=== PATIENT | male | born 1975 | race Caucasian/White ===

== ENCOUNTER → 2018-02-16 15:35 | Outpatient (CLI) | payer OTHER, SELFPAY ==
--- NOTE | 2018-02-16 15:36 | DI.RAD.S_ITS ---
PROCEDURE: XR ELBOW RT MIN 3V INDICATIONS: injury TECHNIQUE: 3 views of the elbow were acquired. COMPARISON: None. FINDINGS: Bones: No fractures or dislocations. No suspicious bony lesions. Soft tissues: No elbow joint effusion. No suspicious soft tissue calcifications. IMPRESSION: Normal for age, source of current symptoms is not seen. Dictated by: Mike Hitchcock M.D. on 02/16/2018 at 16:01 Approved by: Mike Hitchcock M.D. on 02/16/2018 at 16:14
== END ==
PROVIDERS: Family Provider Family Medicine; PCP Family Medicine; Visit Provider Family Medicine
DX: S59.902A Unspecified injury of left elbow, initial encounter (principal)
CPT/HCPCS: 73080

== ENCOUNTER → 2018-03-02 06:57 | Outpatient (CLI) | payer OTHER, SELFPAY ==
--- NOTE | 2018-03-02 06:59 | DI.MRI.S_ITS ---
PROCEDURE: MR ELBOW RT WO CON INDICATIONS: injury TECHNIQUE: Noncontrast coronal proton density fast spin echo and T2 fast spin echo with fat saturation, axial and sagittal T1 spin echo and T2 fast spin echo with fat saturation through the elbow. COMPARISON: None. FINDINGS: Image quality: Excellent. Lateral structures: The lateral ulnar collateral ligament and radial collateral ligament both appear intact. The overlying common extensor tendon appears markedly thickened with intrasubstance signal change in keeping with partial rupture and tendinopathy. There is adjacent soft tissue edema and fluid. Medial structures: The ulnar collateral ligament appears intact. The overlying common flexor tendon appears normal. The ulnar nerve appears normal in size and signal within the cubital tunnel. Anterior structures: The biceps and brachialis tendons both appear intact as they insert onto the proximal radius and ulna, respectively. No bicipitoradial bursal fluid. The median and radial neurovascular bundles appear normal; no focal muscle atrophy to suggest nerve impingement. Posterior structures: The conjoint triceps tendon from the long and lateral heads appears intact. The medial head of the triceps tendon also appears normal, with direct muscle insertion onto the olecranon. No olecranon bursal fluid. Bone and cartilage: No bone marrow contusions or fractures. No osteochondral injuries. IMPRESSION: Severe tendinopathy and partial tear involving the common extensor origin, in keeping with lateral epicondylitis syndrome. Recommend clinical correlation. Dictated by: Jb Iglesias M.D. on 03/02/2018 at 8:29 Approved by: Jb Iglesias M.D. on 03/02/2018 at 8:57
== END ==
PROVIDERS: Family Provider Family Medicine; PCP Family Medicine; Visit Provider Family Medicine
DX: S53.402A Unspecified sprain of left elbow, initial encounter (principal)
CPT/HCPCS: 73221

== ENCOUNTER → 2018-12-06 06:54 | Outpatient (CLI) | payer OTHER, SELFPAY ==
[2018-12-06 07:58] LABS: Add Manual Diff / Slide Review NO; Basophils Absolute Auto 100 /uL (0-100); Basophils Percent Auto 1.2 % (0-2); Eosinophils Absolute Auto 100 /uL (0-450); Hematocrit 46.6 % (41-53); Hemoglobin 15.6 g/dL (13.5-17.5); Lymphocytes Absolute Auto 2300 /uL (1100-4500); Lymphocytes Percent Auto 25.1 % (25-40); Mean Corpuscular HGB Conc 33.5 % (30-36); Mean Corpuscular Hemoglobin 28.7 PG (26-34); Mean Corpuscular Volume 85.5 fL (80-100); Monocytes Absolute Auto 800 /uL (0-900); Monocytes Percent Auto 8.5 % (3-14); Neutrophils Absolute Auto 5800 /uL (1500-7000); Neutrophils Percent Auto 64.2 % (50-75); Platelet Count 260 X10^3/uL (150-400); Red Blood Cell Count 5.45 X10^6/uL (4.5-5.9); Red Cell Distribution Width 13.5 % (11.6-14.8)
[2018-12-06 08:20] LABS: Alanine Aminotransferase 46 IU/L (21-72); Albumin 4.6 g/dL (3.5-5.0); Albumin Globulin Ratio 1.6 (1.0-2.8); Alkaline Phosphatase 70 U/L (38-126); Aspartate Aminotransferase 31 IU/L (17-59); Bilirubin Total 0.5 mg/dL (0.2-1.3); Blood Urea Nitrogen 18 mg/dL (9-20); Calcium 9.4 mg/dL (8.4-10.2); Carbon Dioxide 27 mmol/L (22-32); Chloride 102 mmol/L (98-107); Cholesterol 183 mg/dL (140-199); Estimated Glomerular Filt Rate > 60.0 mL/min (>60); Globulin 2.9 g/dL (1.7-4.1); Glucose 104 mg/dL (70-100); HDL Cholesterol 39 mg/dL (40-60); HEMOLYSIS < 15 (0-50); LDL Cholesterol Calculated 110 mg/dL (<100); Potassium 4.4 mmol/L (3.4-5.1); Sodium 139 mmol/L (137-145); Total Protein 7.5 g/dL (6.3-8.2); Triglycerides 171 mg/dL (35-150)
[2018-12-06 08:51] LABS: Prostate Specific Antigen Scrn 0.423 ng/mL (0.1-4.0)
== END ==
PROVIDERS: Family Provider Family Medicine; PCP Family Medicine; Visit Provider Family Medicine
DX: F32.9 Major depressive disorder, single episode, unspecified (principal)
CPT/HCPCS: 36415; 80053; 80061; 84403; 85025; G0103

== ENCOUNTER → 2019-03-22 07:07 | Outpatient (CLI) | payer OTHER, SELFPAY | PROVIDERS: Family Provider Family Medicine; PCP Family Medicine; Visit Provider Family Medicine | DX: E29.1 Testicular hypofunction (principal) | CPT/HCPCS: 36415; 84403 ==

== ENCOUNTER → 2019-06-21 10:10 | Outpatient (CLI) | payer OTHER, SELFPAY ==
[2019-06-24 13:57] LABS: Testosterone Free 68.2 pg/mL (35.0-155.0); Testosterone Total 299 ng/dL (250-1100)
== END ==
PROVIDERS: Family Provider Family Medicine; PCP Family Medicine; Visit Provider Nurse Practitioner
DX: R79.89 Other specified abnormal findings of blood chemistry (principal); Z51.81 Encounter for therapeutic drug level monitoring; Z79.890 Hormone replacement therapy
CPT/HCPCS: 36415; 84402; 84403

== ENCOUNTER → 2019-09-16 09:04 | Outpatient (CLI) | payer OTHER, SELFPAY | PROVIDERS: PCP Family Medicine; Visit Provider Family Medicine | DX: E34.9 Endocrine disorder, unspecified (principal) | CPT/HCPCS: 36415; 84403 ==

== ENCOUNTER → 2019-11-16 07:13 | Outpatient (CLI) | payer OTHER, SELFPAY ==
[2019-11-16 09:19] LABS: Testosterone 292 ng/dL (132-813)
== END ==
PROVIDERS: PCP Family Medicine; Referring Provider Family Medicine; Visit Provider Family Medicine
DX: E34.9 Endocrine disorder, unspecified (principal)
CPT/HCPCS: 36415; 84403

== ENCOUNTER → 2020-05-16 10:35 | Outpatient (CLI) | payer OTHER, SELFPAY ==
[2020-05-16 12:26] LABS: Add Manual Diff / Slide Review NO; Basophils Absolute Auto 100 /uL (0-100); Basophils Percent Auto 1.1 % (0-2); Eosinophils Absolute Auto 100 /uL (0-450); Eosinophils Percent Auto 0.8 % (2-4); Hematocrit 48.2 % (41-53); Hemoglobin 16.3 g/dL (13.5-17.5); Lymphocytes Absolute Auto 2100 /uL (1100-4500); Lymphocytes Percent Auto 21.7 % (25-40); Mean Corpuscular HGB Conc 33.8 % (30-36); Mean Corpuscular Hemoglobin 29.4 PG (26-34); Monocytes Absolute Auto 1000 /uL (0-900); Monocytes Percent Auto 10.8 % (3-14); Neutrophils Absolute Auto 6200 /uL (1500-7000); Neutrophils Percent Auto 65.6 % (50-75); Platelet Count 233 X10^3/uL (150-400); Red Blood Cell Count 5.54 X10^6/uL (4.5-5.9); Red Cell Distribution Width 14.3 % (11.6-14.8); White Blood Cell Count 9.5 X10^3/uL (4.5-11.0)
[2020-05-16 12:42] LABS: Alanine Aminotransferase 32 IU/L (<50); Albumin 4.4 g/dL (3.5-5.0); Albumin Globulin Ratio 1.6 (1.0-2.8); Alkaline Phosphatase 51 U/L (38-126); Aspartate Aminotransferase 32 IU/L (17-59); BUN Creatinine Ratio 12.5 (6-22); Bilirubin Total 0.9 mg/dL (0.2-1.3); Blood Urea Nitrogen 12 mg/dL (9-20); Calcium 9.3 mg/dL (8.4-10.2); Carbon Dioxide 28 mmol/L (22-32); Chloride 100 mmol/L (98-107); Cholesterol 160 mg/dL (140-199); Estimated Glomerular Filt Rate > 60.0 mL/min (>60); Globulin 2.8 g/dL (1.7-4.1); Glucose 81 mg/dL (70-100); HDL Cholesterol 39 mg/dL (40-60); HEMOLYSIS 49 (0-50); LDL Cholesterol Calculated 87 mg/dL (<100); Potassium 3.9 mmol/L (3.4-5.1); Sodium 137 mmol/L (137-145); Total Protein 7.2 g/dL (6.3-8.2); Triglycerides 170 mg/dL (35-150)
[2020-05-16 13:12] LABS: Prostate Specific Antigen Scrn 0.922 ng/mL (0.1-4.0)
[2020-05-16 13:15] LABS: Testosterone 395 ng/dL (132-813)
== END ==
PROVIDERS: PCP Family Medicine; Referring Provider Family Medicine; Visit Provider Family Medicine
DX: E78.2 Mixed hyperlipidemia (principal); I10 Essential (primary) hypertension; Z12.5 Encounter for screening for malignant neoplasm of prostate
CPT/HCPCS: 36415; 80053; 80061; 84403; 85025; G0103

== ENCOUNTER → 2020-05-25 19:07 | Outpatient (CLI) | payer OTHER, SELFPAY ==
--- NOTE | 2020-05-25 19:09 | DI.MRI.S_ITS ---
PROCEDURE: MR CERVICAL SPINE WO CON INDICATIONS: Neck pain TECHNIQUE: Noncontrast sagittal T1 spin echo and T2 fast spin echo, sagittal STIR, foraminal oblique sagittal T2 fast spin echo, and axial gradient echo or T2 fast spin echo through the cervical spine. COMPARISON: [facility], MR, C-SPINE WITHOUT CONTRAST, 10/11/2015, 9:23. [facility], MR, C-SPINE W&WO CONTRAST, 06/16/2016, 7:48. [facility], CR, SPINE CERVICAL 2 OR 3VW, 05/14/2016, 15:01. [facility], CR, SPINE CERVICAL 2 OR 3VW, 03/13/2016, 9:08. [facility], CR, SPINE CERVICAL 2 OR 3VW, 01/17/2016, 9:01. [facility], MR, C-SPINE WITHOUT CONTRAST, 11/05/2016, 16:55. FINDINGS: Image quality: Excellent. Alignment and Curvature: There is straightening of the normal cervical lordosis. Bone Marrow: Marrow demonstrates normal overall signal. Spinal Cord: Visualized spinal cord has normal size and signal. No cerebellar tonsillar herniation. Paraspinous Soft Tissues: No paravertebral masses. Prevertebral soft tissues are normal in thickness. C2-C3: No significant abnormality is seen. C3-C4: The disc height is well-preserved. Loss of disc signal is seen at this level. Moderate generalized disc osteophyte complex is seen. Mild to moderate facet hypertrophy is seen. There is moderate left-sided and mild right-sided neural foraminal narrowing seen. Mild central canal narrowing is seen. These imaging findings have progressed compared to the prior study. C4-C5: The disc height is well-preserved. Loss of disc signal is seen at this level. Moderate disc osteophyte complex is seen, which is eccentric to the right. There is at least moderate right-sided and moderate right-sided neural foraminal narrowing seen. There is moderate to severe left-sided and minimal left-sided neural foraminal narrowing seen. Moderate central canal narrowing is seen. There is associated mass effect upon the ventral spinal cord. These degenerative changes are more prominent than in 2017. C5-C6: Moderate loss of disc height is seen. Loss of disc signal is seen. Moderate disc osteophyte complex is seen, which is eccentric to the right. Mild facet joint hypertrophy is seen. There is moderate to severe right-sided and moderate left-sided neural foraminal narrowing seen. Mild central canal narrowing is seen. When comparison is made with the prior examination, these findings are similar. C6-C7: Postoperative changes are seen anteriorly, with fixation hardware. There is associated susceptibility artifact. Mild to moderate disc osteophyte complex is seen. Mild facet joint hypertrophy is seen. There is moderate bilateral neural foraminal narrowing seen, left worse than right. The central canal is widely patent. When comparison is made with the prior examination, these findings are similar. C7-T1: The disc height is well-preserved. Loss of disc signal is seen at this level. No significant disc bulge is seen. No significant neural foraminal or central canal narrowing can be seen. No significant change from the prior. IMPRESSION: Unremarkable anterior fixation hardware seen at C6-C7. Mild progression of degenerative change at C3-C4 and C5-C6 compared to 2017. Straightening of the normal cervical lordosis is seen, which is commonly observed in patients with muscular spasm. Dictated by: Jarocho Edge M.D. on 05/28/2020 at 8:27 Approved by: Jarocho Edge M.D. on 05/28/2020 at 8:35
== END ==
PROVIDERS: PCP Family Medicine; Referring Provider Family Medicine; Visit Provider Family Medicine
DX: M54.2 Cervicalgia (principal); M47.812 Spondylosis without myelopathy or radiculopathy, cervical region
CPT/HCPCS: 72141

== ENCOUNTER → 2020-09-07 07:53 | Outpatient (CLI) | payer OTHER, SELFPAY ==
[2020-09-07 08:35] LABS: Hemoglobin A1C% w Est Avg Glu 5.4 % (4.0-6.0)
[2020-09-07 09:01] LABS: BUN Creatinine Ratio 11.9 (6-22); Blood Urea Nitrogen 14 mg/dL (9-20); Calcium 9.1 mg/dL (8.4-10.2); Carbon Dioxide 33 mmol/L (22-32); Chloride 101 mmol/L (98-107); Estimated Glomerular Filt Rate > 60.0 mL/min (>60); Glucose 93 mg/dL (70-100); HEMOLYSIS < 15 (0-50); Potassium 4.1 mmol/L (3.4-5.1); Sodium 138 mmol/L (137-145)
[2020-09-07 09:32] LABS: Testosterone 1170 ng/dL (132-813)
== END ==
PROVIDERS: PCP Family Medicine; Referring Provider Family Medicine; Visit Provider Family Medicine
DX: I10 Essential (primary) hypertension (principal); R81 Glycosuria; E34.9 Endocrine disorder, unspecified
CPT/HCPCS: 36415; 80048; 83036; 84403

== ENCOUNTER → 2020-09-10 15:37 | Outpatient (CLI) | payer OTHER, SELFPAY ==
[2020-09-10 17:32] LABS: COVID19 -Nasal RAPID Negative (Negative)
== END ==
PROVIDERS: PCP Family Medicine; Visit Provider Physician Assistant
DX: Z11.59 Encounter for screening for other viral diseases (principal)
CPT/HCPCS: 87635

== ENCOUNTER 2020-09-11 08:18 | Outpatient (CLI) | payer OTHER, SELFPAY ==
[2020-09-11] VITALS (9 sets, daily range): BP systolic 120–157; BP diastolic 65–87; PULSE 57–64; RESP 12–20; TEMP 36.6; O2SAT 96–100
--- NOTE | 2020-09-11 08:20 | DI.RAD.S_ITS ---
PROCEDURE: PAIN C/T FACET INJ/BLK 1ST L INDICATIONS: SPINAL STENOSIS COMPARISON: X-ray cervical spine, 06/25/2020. FINDINGS: Fluoroscopic spot filming was performed to verify placement of spinal needles at the left C4-C5 and C5-C6 level(s), as labeled on the films. Appropriate location(s) of the needle tip(s) was confirmed by injection of iodinated contrast. IMPRESSION: Fluoroscopy for pain management. Dictated by: Maggie Saldivar M.D. on 09/11/2020 at 10:02 Approved by: Maggie Saldivar M.D. on 09/11/2020 at 10:02
[2020-09-11] MEDS: fentaNYL 100 MCG/2 ML INJ 50 MCG IV (09:14)
[2020-09-11] MEDS: MIDAZOLAM 5 MG/5 ML VIAL IV (09:19)
[2020-09-11] MEDS: DEXAMETHASONE 10 MG/ML VIAL 20 MG INJ (09:19)
[2020-09-11] MEDS: IOPAMIDOL 15 ML VIAL 3 ML INJ (09:19)
[2020-09-11] MEDS: BUPIVACAINE 0.5% (PF) VIAL 2 ML INJ (09:19)
--- NOTE | 2020-09-11 09:30 | P.PCN_ITS ---
Date/Time/Diagnoses Date of procedure: 09/11/20 Time of procedure: 09:30 Pre-procedure diagnosis: 1. FACET ARTHROPATHY 2. AXIAL NECK PAIN Post-procedure diagnosis: same Procedure Notes Procedure: 1. FLUOROSCOPICALLY GUIDED, CONTRAST-CONTROLLED LEFT C4/5, C5/6 FACET JOINT INJECTIONS WITH CONSCIOUS SEDATION. Indications: Kayode is referred by Dr. Conroy for treatment of Axial Neck Pain Physician: Michael Vega Total Fluoroscopy time (seconds): 10 Total sedation minutes: 14 Complications: none Procedure in detail & Post-procedure care: DESCRIPTION OF PROCEDURE Fluoroscopically guided, contrast-controlled left C4/5, C5/6 facet joint injections with conscious sedation. Following review of allergy and review of potential side effects and complications, including, but not necessarily limited to, infection, allergic reaction, local tissue breakdown, stroke, temporary or permanent nerve injury and paralysis, the patient indicated that the patient understood and agreed to proceed. An informed consent document was signed by the patient, witnessed by a nurse, and placed in the patient's chart. Additionally, other treatment options including medications, modalities, and physical therapy were reviewed with the patient. After review of previous anaesthesic history and IV conscious sedation the patient was deemed safe to proceed with today?s procedure with IV conscious sedation as ASA class II designation. Safety time-out was performed to confirm patient ID, procedure to be performed and site of procedure. IV sedation was accomplished with a combination of 4mg of Versed and 50mcg of Fentanyl was administered by the RN after DO order, titrated to patient comfort during the course of the procedure while the patient remained responsive to all verbal commands In the prone position, following sterile prep and drape of the cervical spine region, the posterior aspect of the right C4/5, C5/6 facet joints were identified fluoroscopically. The skin was anesthetized via a 25-gauge 1.5-inch needle with 1% lidocaine solution into the corresponding facet joints. At this point, a 25-gauge 2.5-inch spinal needle was atraumatically introduced and advanced under fluoroscopic guidance into the corresponding facet joints. Following negative aspiration, injections of approximately 0.2-cc of Isovue 200 confirmed interarticular placement without vascular uptake. At this point, a total of 1cc including 0.5 cc or 5mg of dexamethasone combined with 0.5cc of 1% lidocaine solution was injected without complication into each of the corresponding facet joints. The patient tolerated the procedure well without signs or symptoms of complications prior to transfer to the recovery area continued monitoring without incident. The patient was then transferred to the recovery area where they were observed for an appropriate period of time after the injection. The patient reported a VAS score of 7 prior to the procedure and a post- procedure VAS of 1. POST OP INSTRUCTIONS They were provided a Pain Log to continue to record their response to the target-specific procedure prior to their follow-up visit with their referring physician. Additionally, specific post-injection care instructions and a contact number to our office were provided if concerns arise regarding possible complications associated with the procedure are suspected.
== END 2020-09-11 09:52 | disposition home or self-care (01) ==
LOC: RAD 08:19
PROVIDERS: PCP Family Medicine; Referring Provider Family Medicine; Visit Provider Physical Medicine & Rehabilitation
DX: M47.812 Spondylosis without myelopathy or radiculopathy, cervical region (principal); M54.2 Cervicalgia
CPT/HCPCS: 64490; 64491; 99152; J1100; J2250; J3010

== ENCOUNTER → 2020-09-18 12:34 | Outpatient (CLI) | payer OTHER, SELFPAY ==
[2020-09-18 14:12] LABS: Testosterone 753 ng/dL (132-813)
== END ==
PROVIDERS: PCP Family Medicine; Referring Provider Family Medicine; Visit Provider Family Medicine
DX: R79.89 Other specified abnormal findings of blood chemistry (principal)
CPT/HCPCS: 36415; 84403

== ENCOUNTER → 2020-11-13 09:48 | Outpatient (CLI) | payer OTHER, SELFPAY ==
[2020-11-13 11:24] LABS: Testosterone 431 ng/dL (132-813)
== END ==
PROVIDERS: PCP Family Medicine; Referring Provider Family Medicine; Visit Provider Family Medicine
DX: E34.9 Endocrine disorder, unspecified (principal)
CPT/HCPCS: 36415; 84403

== ENCOUNTER → 2021-03-18 17:57 | Outpatient (CLI) | payer OTHER, SELFPAY ==
[2021-03-18 19:07] LABS: COVID19 -Nasal RAPID POSITIVE (Negative)
== END ==
PROVIDERS: PCP Family Medicine; Visit Provider Physician Assistant
DX: U07.1 COVID-19 (principal)
CPT/HCPCS: 87070; 87635

== ENCOUNTER → 2021-08-06 07:26 | Outpatient (CLI) | payer OTHER, SELFPAY ==
--- NOTE | 2021-08-06 07:27 | DI.RAD.S_ITS ---
PROCEDURE: XR CERVICAL SPINE 4V OR 5V INDICATIONS: NECK PAIN TECHNIQUE: 5 views of the cervical spine acquired. COMPARISON: Reference is made to the MR cervical spine dated May 25, 2020. FINDINGS: Bones: No fractures or dislocations to the C7 level. Anterior fixation and discectomy at C6-7. Uncovertebral/facet arthrosis causing mild to moderate right neural foraminal narrowing at C3-6. Oblique images demonstrate no left bony foraminal stenosis. Soft tissues: No prevertebral soft tissue swelling. IMPRESSION: No acute osseous abnormality. Dictated by: Arnie Grace M.D. on 08/06/2021 at 8:45 Approved by: Arnie Grace M.D. on 08/06/2021 at 8:49
== END ==
PROVIDERS: PCP Family Medicine; Referring Provider Physical Medicine & Rehabilitation; Visit Provider Physical Medicine & Rehabilitation
DX: M50.20 Other cervical disc displacement, unspecified cervical region (principal); M47.812 Spondylosis without myelopathy or radiculopathy, cervical region
CPT/HCPCS: 72050

== ENCOUNTER → 2022-03-11 09:21 | Outpatient (CLI) | payer OTHER, SELFPAY ==
[2022-03-11 10:21] LABS: Add Manual Diff / Slide Review NO; Basophils Absolute Auto 100 /uL (0-100); Basophils Percent Auto 1.7 % (0-2); Eosinophils Absolute Auto 200 /uL (0-450); Hemoglobin 16.2 g/dL (13.5-17.5); Lymphocytes Absolute Auto 1400 /uL (1100-4500); Lymphocytes Percent Auto 24.2 % (25-40); Mean Corpuscular HGB Conc 33.8 % (30-36); Mean Corpuscular Hemoglobin 29.1 PG (26-34); Monocytes Absolute Auto 500 /uL (0-900); Monocytes Percent Auto 8.5 % (3-14); Neutrophils Absolute Auto 3700 /uL (1500-7000); Neutrophils Percent Auto 62.6 % (50-75); Platelet Count 212 X10^3/uL (150-400); Red Blood Cell Count 5.59 X10^6/uL (4.5-5.9); Red Cell Distribution Width 13.6 % (11.6-14.8); White Blood Cell Count 5.9 X10^3/uL (4.5-11.0)
[2022-03-11 10:39] LABS: BUN Creatinine Ratio 13.7 (6-22); Blood Urea Nitrogen 13 mg/dL (9-20); Calcium 9.2 mg/dL (8.4-10.2); Carbon Dioxide 26 mmol/L (22-32); Chloride 106 mmol/L (98-107); Cholesterol 172 mg/dL (140-199); Estimated Glomerular Filt Rate > 60 mL/min (>60); Glucose 101 mg/dL (70-100); HDL Cholesterol 41 mg/dL (40-60); HEMOLYSIS < 15 (0-50); LDL Cholesterol Calculated 106 mg/dL (<100); Sodium 140 mmol/L (137-145); Triglycerides 127 mg/dL (35-150)
[2022-03-16 21:07] LABS: Percent Free Testosterone 2.92 % (1.50-4.20); Testosterone Free 3.12 ng/dL (5.00-21.00); Testosterone Total 106.8 ng/dL (264.0-916.0)
== END ==
PROVIDERS: PCP Family Medicine; Referring Provider Family Medicine; Visit Provider Family Medicine
DX: E34.9 Endocrine disorder, unspecified (principal); E78.2 Mixed hyperlipidemia; I10 Essential (primary) hypertension
CPT/HCPCS: 36415; 80048; 80061; 84402; 84403; 85025

== ENCOUNTER → 2022-07-12 09:27 | Outpatient (CLI) | payer OTHER, SELFPAY ==
[2022-07-24 10:01] LABS: Percent Free Testosterone 3.67 % (1.50-4.20); Testosterone Free 4.21 ng/dL (5.00-21.00); Testosterone Total 114.7 ng/dL (264.0-916.0)
== END ==
PROVIDERS: PCP Family Medicine; Referring Provider Family Medicine; Visit Provider Family Medicine
DX: E34.9 Endocrine disorder, unspecified (principal)
CPT/HCPCS: 36415; 84402; 84403

== ENCOUNTER → 2022-09-24 08:26 | Outpatient (CLI) | payer OTHER, SELFPAY ==
[2022-10-02 08:47] LABS: Percent Free Testosterone 3.25 % (1.50-4.20); Testosterone Free 9.39 ng/dL (5.00-21.00); Testosterone Total 288.8 ng/dL (264.0-916.0)
== END ==
PROVIDERS: PCP Family Medicine; Referring Provider Family Medicine; Visit Provider Family Medicine
DX: E34.9 Endocrine disorder, unspecified (principal)
CPT/HCPCS: 36415; 84402; 84403

== ENCOUNTER → 2023-07-17 08:28 | Outpatient (CLI) | payer OTHER, SELFPAY ==
--- NOTE | 2023-07-17 08:39 | DI.RAD.S_ITS ---
PROCEDURE: XR LUMBAR SPINE 2-3V INDICATIONS: Lumbago with sciatica, left side TECHNIQUE: 3 views of the lumbar spine were acquired. COMPARISON: None. FINDINGS: Bones: 5 [id number] vertebrae are present. Small vertebral body osteophytes. There is normal bony alignment. No vertebral body compression fractures. No suspicious bony lesions. Soft tissues: Overlying bowel gas pattern is normal. No suspicious soft tissue calcifications. IMPRESSION: Mild degenerative change. If clinically indicated consider further evaluation with MRI. Dictated by: Kj Foster M.D. on 07/17/2023 at 9:45 Approved by: Kj Foster M.D. on 07/17/2023 at 9:47
[2023-07-17 09:05] LABS: Add Manual Diff / Slide Review NO; Basophils Absolute Auto 100 /uL (0-100); Eosinophils Absolute Auto 100 /uL (0-450); Eosinophils Percent Auto 0.6 % (2-4); Hematocrit 43.7 % (41-53); Hemoglobin 14.8 g/dL (13.5-17.5); Lymphocytes Absolute Auto 1700 /uL (1100-4500); Lymphocytes Percent Auto 19.7 % (25-40); Mean Corpuscular HGB Conc 33.8 % (30-36); Mean Corpuscular Hemoglobin 29.1 PG (26-34); Mean Corpuscular Volume 86.1 fL (80-100); Monocytes Absolute Auto 500 /uL (0-900); Monocytes Percent Auto 6.3 % (3-14); Neutrophils Absolute Auto 6300 /uL (1500-7000); Neutrophils Percent Auto 72.4 % (50-75); Platelet Count 234 X10^3/uL (150-400); Red Blood Cell Count 5.08 X10^6/uL (4.5-5.9); Red Cell Distribution Width 13.5 % (11.6-14.8); White Blood Cell Count 8.7 X10^3/uL (4.5-11.0)
[2023-07-17 09:19] LABS: Alanine Aminotransferase 22 IU/L (<50); Albumin 4.4 g/dL (3.5-5.0); Albumin Globulin Ratio 1.4 (1.0-2.8); Alkaline Phosphatase 61 U/L (38-126); Aspartate Aminotransferase 23 IU/L (17-59); BUN Creatinine Ratio 13.1 (6-22); Bilirubin Total 0.6 mg/dL (0.2-1.3); Blood Urea Nitrogen 13 mg/dL (9-20); Calcium 9.3 mg/dL (8.4-10.2); Carbon Dioxide 27 mmol/L (22-32); Chloride 104 mmol/L (98-107); Cholesterol 168 mg/dL (140-199); Estimated Glomerular Filt Rate > 60 mL/min (>60); Globulin 3.2 g/dL (1.7-4.1); Glucose 96 mg/dL (70-100); HDL Cholesterol 40 mg/dL (40-60); HEMOLYSIS < 15 (0-50); LDL Cholesterol Calculated 92 mg/dL (<100); Potassium 4.1 mmol/L (3.4-5.1); Sodium 142 mmol/L (137-145); Total Protein 7.6 g/dL (6.3-8.2); Triglycerides 181 mg/dL (35-150)
== END ==
PROVIDERS: PCP Family Medicine; Referring Provider Family Medicine; Visit Provider Family Medicine
DX: E78.2 Mixed hyperlipidemia (principal); I10 Essential (primary) hypertension; M54.42 Lumbago with sciatica, left side
CPT/HCPCS: 36415; 72100; 80053; 80061; 85025

== ENCOUNTER → 2023-08-07 06:59 | Outpatient (CLI) | payer OTHER, SELFPAY ==
[2023-08-14 08:10] LABS: Percent Free Testosterone 4.45 % (1.50-4.20); Testosterone Free 19.61 ng/dL (5.00-21.00); Testosterone Total 440.7 ng/dL (264.0-916.0)
== END ==
PROVIDERS: PCP Family Medicine; Referring Provider Family Medicine; Visit Provider Family Medicine
DX: E34.9 Endocrine disorder, unspecified (principal)
CPT/HCPCS: 36415; 84402; 84403

== ENCOUNTER → 2023-10-16 17:10 | Outpatient (CLI) | payer OTHER, SELFPAY ==
--- NOTE | 2023-10-16 17:11 | DI.MRI.S_ITS ---
PROCEDURE: MR LUMBAR SPINE WO CON INDICATIONS: LUMBAR RADICULOPATHY L5 TECHNIQUE: Noncontrast sagittal T1 spin echo and T2 fast echo, sagittal STIR, and T2 fast spin echo through the lumbar spine. In cases with scoliosis, additional coronal T2 fast spin echo may be performed. COMPARISON: None. FINDINGS: Image quality: Excellent. Alignment and Curvature: There is minimal retrolisthesis seen at the L4-L5 and the L5-S1 levels. Bone Marrow: Marrow is of normal overall signal. No acute vertebral body compression fractures. Spinal Cord: Conus medullaris terminates at the L1 level. Visualized cord demonstrates normal signal and size. Paraspinous Soft Tissues: No paravertebral masses. Incidental note is made of a retroaortic left renal vein. T12-L1: Normal appearance. L1-L2: Normal appearance. L2-L3: The disc height and disk signal are well-preserved. Mild to moderate disc bulge is seen, with a central disc protrusion. There is mild right-sided and moderate left-sided neural foraminal narrowing. Mild central canal narrowing is seen. L3-L4: The disc height and disk signal are well-preserved. Mild generalized disc bulge is seen. Mild to moderate bilateral neural foraminal narrowing can be seen. Mild central canal narrowing is seen. L4-L5: The disc height is well-preserved. Loss of disc signal is seen at this level. Mild to moderate disc bulge is seen, which is eccentric to the right. There is a superimposed central disc protrusion. Mild facet joint hypertrophy is seen. Moderate bilateral neural foraminal narrowing is seen. Mild central canal narrowing is seen. L5-S1: Mild loss of disc height is seen. Loss of disc signal is seen. Moderate disc bulge is seen, which is eccentric to the left. There is a superimposed central disc protrusion. Mild facet joint hypertrophy is seen. There is moderate right-sided and at least moderate left-sided neural foraminal narrowing. There is a degree of compression seen upon the exiting left L5 nerve root. Mild central canal narrowing is seen. IMPRESSION: Multiple levels of lumbar spine degenerative change can be seen, which are worst at L5-S1, where there is a degree of compression seen upon the exiting left L5 nerve root. Dictated by: Jarocho Edge M.D. on 10/16/2023 at 18:01 Approved by: Jarocho Edge M.D. on 10/16/2023 at 18:04
== END ==
PROVIDERS: PCP Family Medicine; Referring Provider Physical Medicine & Rehabilitation; Visit Provider Physical Medicine & Rehabilitation
DX: M47.26 Other spondylosis with radiculopathy, lumbar region; M47.27 Other spondylosis with radiculopathy, lumbosacral region
CPT/HCPCS: 72148

== ENCOUNTER 2023-11-03 14:54 | Outpatient (CLI) | payer OTHER, SELFPAY ==
[2023-11-03] VITALS (10 sets, daily range): BP systolic 133–145; BP diastolic 82–93; PULSE 78–94; RESP 16–22; TEMP 36.1; O2SAT 95–99
--- NOTE | 2023-11-03 15:30 | DI.RAD.S_ITS ---
PROCEDURE: PAIN L/S TRANSFORAMINAL INJECT INDICATIONS: RADICULOPATHY COMPARISON: [facility], MR, MR LUMBAR SPINE WO CON, 10/16/2023, 17:45. FINDINGS: Fluoroscopic spot filming was performed to verify placement of a spinal needle at the L5-S1 level, as labeled on the films. Appropriate location of the needle tip was confirmed by injection of iodinated contrast. IMPRESSION: No significant intraprocedural abnormality. Dictated by: Jarocho Edge M.D. on 11/03/2023 at 16:21 Approved by: Jarocho Edge M.D. on 11/03/2023 at 16:22
[2023-11-03] MEDS: MIDAZOLAM 2 MG/2 ML VIAL IV (16:25)
[2023-11-03] MEDS: BETAMETHASONE 30 MG/5 ML MDV 6 MG INJ (16:28)
[2023-11-03] MEDS: iopamidoL 15 ML VIAL 3 ML INJ (16:28)
[2023-11-03] MEDS: DEXAMETHASONE 10 MG/ML VIAL INJ (16:29)
[2023-11-03] MEDS: BUPIVACAINE 0.25% (PF) VIAL 2 ML INJ (16:29)
--- NOTE | 2023-11-03 16:36 | PC.NURSE ---
Patient's 1625 vital signs were documented initially with the time of 1425. The time was corrected to 1625, but I was unable to delete the 1425 vital sign from the chart.
--- NOTE | 2023-11-03 16:42 | P.PCN_ITS ---
Date/Time/Diagnoses Date of procedure: 11/03/23 Time of procedure: 16:43 Pre-procedure diagnosis: 1. FORAMINAL STENOSIS WITH LE SYMPTOMS Post-procedure diagnosis: same Procedure Notes Procedure: 1. FLUOROSCOPICALLY GUIDED CONTRAST CONTROLLED TRANSFORAMINAL EPIDURAL STEROID INJECTION - Left L5/S1 Indications: Kayode is referred by Dr. Cherry for treatment of Foraminal Stenosis with Left LE Symptoms Physician: Michael Vega Total Fluoroscopy time (seconds): 15 Total sedation minutes: 12 Complications: none Procedure in detail & Post-procedure care: FINDINGS Foraminal Nerve Root Compression secondary to disc disease and facet hypertrophy DESCRIPTION OF PROCEDURE Following review of allergy and review of potential side effects and complications, including, but not necessarily limited to, infection, allergic reaction, local tissue breakdown, stroke, temporary or permanent nerve injury, paralysis, and possible , the patient indicated that the patient understood and agreed to proceed. An informed consent document was signed by the patient, witnessed by a nurse, and placed in the patient's chart. Additionally, other treatment options including medications, modalities, and physical therapy were reviewed with the patient. After review of previous anaesthesic history and IV conscious sedation the patient was deemed safe to proceed with today?s procedure with IV conscious sedation as ASA class II designation. Safety time-out was performed to confirm patient ID, procedure to be performed and site of procedure. IV sedation was accomplished with a combination of 2mg of Versed was administered by the RN after DO order, titrated to patient comfort during the course of the procedure while the patient remained responsive to all verbal commands In the prone position following sterile prep and drape of the lumbar region, the Left L5/S1 posterior neuroforamen was identified fluoroscopically. The skin was anesthetized via a 25-gauge 1.5-inch needle with 1% lidocaine solution. At this point, a 25-gauge 3.5-inch spinal needle was atraumatically introduced and advanced under fluoroscopic guidance through the posterior Left L5/S1 neuroforamen to approximately the anterior aspect of the canal. Depth was confirmed on lateral view. Following negative aspiration, injection of approximately 1.5 cc of Isovue 200 under live fluoroscopy in the AP view confirmed excellent flow along the nerve root, into the epidural space without vascular or intrathecal uptake observed Radiological data, including multiple fluoroscopic views of the lumbosacral spine, reveal a spinal needle at the Left L5/S1 posterior neuroforamen. Subsequent views show flow of contrast material flowing superiorly and inferiorly along the nerve root confirming epidural flow. Subsequently, a test dose of 1.5 cc of 1% lidocaine solution was administered and patient was observed for two minutes for signs or symptoms of complications, including abdominal pain, shortness of breath, bilateral upper or lower extremity weakness, nausea and vomiting, prior to steroid injection. At this point, a total of 2cc or 10mg of dexamethasone and 6mg of betamethasone was injected without incident. The procedure tolerated the procedure well without signs or symptoms of complications prior to transfer to the recovery area continued monitoring without incident. The patient was then transferred to the recovery area where they were observed for an appropriate time after the injection. The patient reported a VAS score of 8 prior to the procedure and a post-procedure VAS of 1. POST OP INSTRUCTIONS The patient was provided a Pain Log to continue to record their response to the target-specific procedure prior to follow-up visit with their referring physic rosa. Additionally, specific post-injection care instructions and a contact number to our office were provided if concerns arise regarding possible complications associated with the procedure are suspected.
== END 2023-11-03 17:00 | disposition home or self-care (01) ==
LOC: RAD 14:55
PROVIDERS: PCP Family Medicine; Referring Provider Physical Medicine & Rehabilitation; Visit Provider Physical Medicine & Rehabilitation
DX: M48.07 Spinal stenosis, lumbosacral region (principal); M51.17 Intervertebral disc disorders with radiculopathy, lumbosacral region; M47.27 Other spondylosis with radiculopathy, lumbosacral region
CPT/HCPCS: 64483; 99152; J0702; J1100; J2250; J3490

== ENCOUNTER 2023-11-04 19:36 | Emergency (ER) | payer OTHER, SELFPAY ==
[2023-11-04] VITALS (11 sets, daily range): BP systolic 101–146; BP diastolic 57–88; PULSE 79–147; RESP 16–32; TEMP 36.3–36.9; O2SAT 94–100; BMI 37.3
--- NOTE | 2023-11-04 19:47 | DI.RAD.S_ITS ---
PROCEDURE: XR CHEST 1V INDICATIONS: dyspnea, new a fib TECHNIQUE: One view of the chest was acquired. COMPARISON: [facility], , CHEST 2 VIEW, 03/28/2015, 11:53. FINDINGS: Surgical changes and devices: Partially evaluated lower cervical spine hardware. Lungs and pleura: Low lung volumes, but otherwise lungs are clear. No pleural effusions or pneumothorax. Mediastinum: Mediastinal contours appear normal. Heart size is normal. Bones and chest wall: No suspicious bony lesions. Overlying soft tissues appear unremarkable. IMPRESSION: Low lung volumes, but otherwise lungs are clear. Approved by: Lacey Gan M.D. on 11/04/2023 at 20:42
--- NOTE | 2023-11-04 19:49 | ED_ITS ---
HPI - SOB/Dyspnea General Chief Complaint: Arrhythmia/Palpitations Stated Complaint: dificulty breathing s/p injection Time Seen by Provider: 11/04/23 19:43 History of Present Illness HPI Narrative: 48-year-old male with history of hypertension, gout, chronic lumbar back pain presents by private vehicle from home for chest pain, shortness of breath since approximately 715 this evening. Yesterday the patient underwent lumbar spine injection for his chronic back pain. This afternoon he had a mild post- injection headache and was given a single dose of Valium, which resolved his headache completely. He went to go lie down when all of a sudden he felt chest pain, shortness of breath, and tingling in both of his arms. He called his , who took him to the emergency department. Patient noted to be in atrial fibrillation with rapid ventricular response on arrival. Denies history of heart problems, denies history of AFib. Related Data Previous Rx's Medication Instructions Recorded tizanidine 2 mg tablet 2 mg PO BID PRN muscle spasticity 06/03/21 #60 tabs celecoxib 200 mg capsule (Celebrex) 200 mg PO DAILY #30 caps 06/09/23 amlodipine 5 mg tablet 5 mg PO DAILY #90 tabs 06/10/23 bupropion HCl 150 mg tablet,12 hr 150 mg PO BID #180 tabs 06/10/23 sustained-release lovastatin 20 mg tablet 20 mg PO BEDTIME #90 tabs 06/10/23 methylprednisolone 4 mg tablets in See Rx Instructions PO PER PKG DIR 07/20/23 a dose pack (Medrol (Eddie)) radiculopathy #21 ea testosterone See Rx Instructions .Route 07/22/23 .COMPLEX #75 grams allopurinol 300 mg tablet See Rx Instructions .Route 08/06/23 .COMPLEX #90 tabs gabapentin 600 mg tablet 1,200 mg (2 x 600 mg) PO TID 08/06/23 neuropathic pain #540 tabs metoprolol tartrate 50 mg tablet See Rx Instructions .Route 08/06/23 .COMPLEX #180 tabs diazepam 10 mg tablet (Valium) 10 mg PO .COMPLEX PRN 1-2 prior to 10/27/23 MRI and for possible steroid flare #10 tabs apixaban 5 mg tablet (Eliquis) 5 mg PO BID #60 tabs 11/04/23 metoprolol tartrate 25 mg tablet 25 mg PO BID #60 tabs 11/04/23 Allergies Allergy/AdvReac Type Severity Reaction Status Date / Time No Known Drug Allergies Allergy Unknown Verified 11/04/23 19:49 [NO KNOWN DRUG ALLERGIES] Review of Systems Review of Systems Narrative: Negative except as noted above Patient History Medical History Facet arthropathy, lumbar Lumbar radiculopathy Acute low back pain with left-sided sciatica Chronic thoracic back pain Sacral region somatic dysfunction Pelvic somatic dysfunction Segmental and somatic dysfunction of abdomen and other regions Lumbar region somatic dysfunction Segmental and somatic dysfunction of rib cage Thoracic region somatic dysfunction Cervical somatic dysfunction Cranial somatic dysfunction Lower urinary tract symptoms (LUTS) Testosterone deficiency HNP (herniated nucleus pulposus), cervical Facet arthropathy, cervical Essential hypertension Low back pain BMI 40.0-44.9, adult Depression (11/03/16) Gout (04/19/15) Surgical History S/P cervical spinal fusion Family History Father No problems noted. Mother Brain aneurysm Multiple sclerosis Social History Smoking Status: Former smoker alcohol intake: never substance use type: does not use Smoking Status: Former smoker Exam Initial Vital Signs Initial Vital Signs: Vital Signs Temperature 97.4 F L 11/04/23 19:38 Pulse Rate 114 H 11/04/23 19:38 Respiratory Rate 18 11/04/23 19:38 Blood Pressure 146/88 H 11/04/23 19:38 Pulse Oximetry 98 11/04/23 19:38 Oxygen Delivery Method Room Air 11/04/23 19:38 Const: Awake, alert, anxious Cardiac: Tachycardia, irregularly irregular RESP: unlabored, clear bilaterally, no wheezing GI: Atraumatic, soft, nontender, nondistended, no rebound, no guarding MSK: Atraumatic, full range of motion, pulses equal Skin: Warm, Dry, intact, no rashes Neuro: AO x3, CN II-XII grossly intact, moves all extremities Psych: Anxious affect, mood normal, not suicidal, not homicidal Procedures Cardioversion Consent Signed: Yes Indication: Atrial fibrillation with RVR Stability: Stable Number of attempts (shocks): 1 Joules used: 120 Cardiac rhythm post-cardioversion: Normal sinus rhythm Procedural Sedation Consent signed: Yes Time out performed: Yes Indication: cardioversion ASA Class: II Mallampati Airway Classification: Class III Preparation: night monitor applied, pulse oximeter, capnometry used, supplemental O2 applied, suction/airway equipment at bedside and IV secured IV Propofol dose (mg): 100 Intraservice time/total sedation time (min): 10 ED Sedation Level: Moderate (Concious) Patient Tolerated Procedure: Well and No complications Complications: none Course Orders Ordered: ED Orders 11/04/23 19:47 Chest [XR chest 1V] Stat EKG-12 Lead Stat 11/04/23 19:48 CBC Auto Diff [Complete Blood Count AUTO DIFF] Stat CMP [Comprehensive Metabolic Panel] Stat D Dimer Stat PT [Prothrombin Time INR] Stat Pathologist Review (for CBC) Stat Troponin & CK Cardiac Panel Stat 11/04/23 20:20 Respiratory Panel (Film Array) Stat 11/04/23 20:25 Blood Culture Stat 11/04/23 20:38 CT angio chest PE protocol Stat 11/04/23 20:40 BNP [NT-proBNP (BNP-Adult 18+)] Stat Ethanol (ETOH) Stat Lactate (Lactic Acid) Stat TSH [Thyroid Stimulating Hormone] Stat 11/04/23 22:00 Urine Drug Screen, Rapid Stat Discontinued Medications Apixaban (Apixaban 5 Mg Tablet) 5 mg PO NOW ONE Stop: 11/04/23 23:35 Last Admin: 11/04/23 23:55 Dose: 5 mg Documented By: PHILL Sodium Chloride (Normal Saline 0.9%) 1,000 mls @ 1,000 mls/hr IV BOLUS ONE Stop: 11/04/23 20:46 Last Infusion: 11/04/23 21:00 Dose: Infused Documented By: Admin: 11/04/23 19:56 Dose: 1,000 mls/hr Documented By: EYAL Sodium Chloride (Normal Saline 0.9%) 1,000 mls @ 1,000 mls/hr IV BOLUS ONE Stop: 11/04/23 22:32 Last Admin: 11/04/23 22:45 Dose: 1,000 mls/hr Documented By: PHILL Metoprolol Tartrate (Metoprolol Tartrate 5 Mg/5 Ml Inj) 5 mg IV Q5M YANDY Stop: 11/04/23 20:11 Last Admin: 11/04/23 20:14 Dose: 5 mg Documented By: Admin: 11/04/23 20:07 Dose: 5 mg Documented By: Admin: 11/04/23 19:58 Dose: 5 mg Documented By: EYAL Metoprolol Tartrate (Metoprolol Ir 25 Mg Tablet) 25 mg PO NOW ONE Stop: 11/04/23 23:35 Last Admin: 11/04/23 23:54 Dose: 25 mg Documented By: PHILL Propofol (Propofol 200 Mg/20 Ml Vial) 200 mg IV NOW ONE Stop: 11/04/23 21:43 Last Admin: 11/04/23 23:05 Dose: 100 mg Documented By: PHILL Vital Signs Vital signs: Vital Signs - 8 hr 11/04/23 19:38 11/04/23 19:44 11/04/23 19:45 Temperature 97.4 F L Pulse Rate 114 H 121 H 101 H Respiratory Rate 18 Blood Pressure 146/88 H Pulse Oximetry 98 98 94 Oxygen Delivery Method Room Air Oxygen Flow Rate 11/04/23 19:45 11/04/23 20:00 11/04/23 20:30 Temperature Pulse Rate 147 H 120 H Respiratory Rate 32 H 23 Blood Pressure 146/88 H Pulse Oximetry 100 98 Oxygen Delivery Method Oxygen Flow Rate 11/04/23 22:50 11/04/23 23:05 11/04/23 23:13 Temperature 98.4 F 98.4 F Pulse Rate 117 H 83 Respiratory Rate 16 20 Blood Pressure 104/72 Pulse Oximetry Oxygen Delivery Method Room Air Oxygen Flow Rate 11/04/23 23:15 11/04/23 23:35 11/04/23 23:45 Temperature Pulse Rate 79 80 80 Respiratory Rate 17 18 17 Blood Pressure 101/57 L 110/67 111/64 Pulse Oximetry 95 97 95 Oxygen Delivery Method Oxygen Flow Rate 0 0 MDM - SOB/Dyspnea Differential Diagnosis Differential diagnosis: Likely acute exacerbation of chronic obstructive airways disease, congestive heart failure and community acquired pneumonia Lab Data 11/04/23 19:48 11/04/23 19:48 Labs: Lab Results 11/04/23 11/04/23 11/04/23 Range/Units 19:48 20:20 20:40 WBC 37.1 H* (4.5-11.0) X10^3/uL RBC 5.19 (4.5-5.9) X10^6/uL Hgb 15.0 (13.5-17.5) g/dL Hct 44.8 (41-53) % MCV 86.2 (80-100) fL MCH 28.8 (26-34) PG MCHC 33.4 (30-36) % RDW 13.3 (11.6-14.8) % Plt Count 260 (150-400) X10^3/uL Neut % (Auto) Not Reportable Lymph % (Auto) Not Reportable [place] % (Auto) Not Reportable Eos % (Auto) Not Reportable Baso % (Auto) Not Reportable Lymph # (Auto) Not Reportable [place] # (Auto) Not Reportable Baso # (Auto) Not Reportable Total Counted 100 Seg Neutrophils % 77.0 H (38-70) % Band Neutrophils % 5.0 (3-7) % Lymphocytes % (Manual) 5.0 L (25-45) % Atypical Lymphs % 1.0 H ( - 0) % Monocytes % (Manual) 12.0 H (2-11) % Neutrophils # (Manual) 71303 H (0904-7735) /uL RBC Morphology Normal morphology PT 10.8 (9.4-12.5) SECONDS INR 0.9 (0.9-1.3) D-Dimer 947 H (<500) ng/ml Sodium 140 (137-145) mmol/L Potassium 4.4 (3.4-5.1) mmol/L Chloride 109 H (98-107) mmol/L Carbon Dioxide 19 L (22-32) mmol/L BUN 23 H (9-20) mg/dL Creatinine 1.31 H (0.66-1.25) mg/dL Estimated GFR > 60 (>60) mL/min BUN/Creatinine Ratio 17.6 (6-22) Glucose 198 H (70-100) mg/dL Lactate 4.5 H* (0.7-2.1) mmol/L Calcium 10.2 (8.4-10.2) mg/dL Total Bilirubin 0.7 (0.2-1.3) mg/dL AST 39 (17-59) IU/L ALT 29 (<50) IU/L Alkaline Phosphatase 72 (38-126) U/L Total Creatine Kinase 131 (55-170) U/L Troponin I < 0.012 (0.01-0.034) ng/mL NT-Pro-B Natriuret Pep 323 H (<125) pg/mL Total Protein 8.2 (6.3-8.2) g/dL Albumin 4.8 (3.5-5.0) g/dL Globulin 3.4 (1.7-4.1) g/dL Albumin/Globulin Ratio 1.4 (1.0-2.8) TSH 0.620 (0.47-4.68) uIU/mL U Opiates 300ng/mL cut (Negative) Ur Oxycodone Screen (Negative) Urine Methadone Screen (Negative) Ur Barbiturates Screen (Negative) U Tricyclic Antidepress (Negative) Ur Phencyclidine Scrn (Negative) Ur Amphetamines Screen (Negative) U Methamphetamines Scrn (Negative) Ur MDMA Scrn (Ecstasy) (Negative) U Benzodiazepines Scrn (Negative) Urine Cocaine Screen (Negative) U Marijuana (THC) Screen (Negative) Urine pH Urine Specific [place] Ethyl Alcohol < 10 ( - 10) mg/dL Ur Creatinine Chlamy pneumoniae PCR Not detected (Not Detect) Adenovirus (PCR) Not detected (Not Detect) B.parapertussis DNA PCR Not detected (Not Detecte) Coronavirus OC43 (PCR) Not detected (Not Detect) Coronavirus HKU1 (PCR) Not detected (Not Detect) Coronavirus 229E (PCR) Not detected (Not Detect) SARS-CoV-2 (PCR) Not detected (Not Detecte) Coronavirus NL63 (PCR) Not detected (Not Detect) Human Metapneumovir PCR Not detected (Not Detect) Influenza Type A (PCR) Not detected (Not Detect) Influenza Type B (PCR) Not detected (Not Detect) M. pneumoniae (PCR) Not detected (Not Detect) Parainfluenza 1 (PCR) Not detected (Not Detect) Parainfluenza 2 (PCR) Not detected (Not Detect) Parainfluenza 3 (PCR) Not detected (Not Detect) Parainfluenza 4 (PCR) Not detected (Not Detect) RSV (PCR) Not detected (Not Detect) Entero/Rhino (PCR) Not detected (Not Detect) 11/04/23 11/04/23 Range/Units 22:00 22:50 WBC (4.5-11.0) X10^3/uL RBC (4.5-5.9) X10^6/uL Hgb (13.5-17.5) g/dL Hct (41-53) % MCV (80-100) fL MCH (26-34) PG MCHC (30-36) % RDW (11.6-14.8) % Plt Count (150-400) X10^3/uL Neut % (Auto) Lymph % (Auto) [place] % (Auto) Eos % (Auto) Baso % (Auto) Lymph # (Auto) [place] # (Auto) Baso # (Auto) Total Counted Seg Neutrophils % (38-70) % Band Neutrophils % (3-7) % Lymphocytes % (Manual) (25-45) % Atypical Lymphs % ( - 0) % Monocytes % (Manual) (2-11) % Neutrophils # (Manual) (7873-3021) /uL RBC Morphology PT (9.4-12.5) SECONDS INR (0.9-1.3) D-Dimer (<500) ng/ml Sodium (137-145) mmol/L Potassium (3.4-5.1) mmol/L Chloride (98-107) mmol/L Carbon Dioxide (22-32) mmol/L BUN (9-20) mg/dL Creatinine (0.66-1.25) mg/dL Estimated GFR (>60) mL/min BUN/Creatinine Ratio (6-22) Glucose (70-100) mg/dL Lactate 2.0 (0.7-2.1) mmol/L Calcium (8.4-10.2) mg/dL Total Bilirubin (0.2-1.3) mg/dL AST (17-59) IU/L ALT (<50) IU/L Alkaline Phosphatase (38-126) U/L Total Creatine Kinase (55-170) U/L Troponin I (0.01-0.034) ng/mL NT-Pro-B Natriuret Pep (<125) pg/mL Total Protein (6.3-8.2) g/dL Albumin (3.5-5.0) g/dL Globulin (1.7-4.1) g/dL Albumin/Globulin Ratio (1.0-2.8) TSH (0.47-4.68) uIU/mL U Opiates 300ng/mL cut Negative (Negative) Ur Oxycodone Screen Negative (Negative) Urine Methadone Screen Negative (Negative) Ur Barbiturates Screen Negative (Negative) U Tricyclic Antidepress Negative (Negative) Ur Phencyclidine Scrn Negative (Negative) Ur Amphetamines Screen Negative (Negative) U Methamphetamines Scrn Negative (Negative) Ur MDMA Scrn (Ecstasy) Negative (Negative) U Benzodiazepines Scrn Positive H (Negative) Urine Cocaine Screen Negative (Negative) U Marijuana (THC) Screen Negative (Negative) Urine pH Not Reportable Urine Specific [place] Not Reportable Ethyl Alcohol ( - 10) mg/dL Ur Creatinine Not Reportable Chlamy pneumoniae PCR (Not Detect) Adenovirus (PCR) (Not Detect) B.parapertussis DNA PCR (Not Detecte) Coronavirus OC43 (PCR) (Not Detect) Coronavirus HKU1 (PCR) (Not Detect) Coronavirus 229E (PCR) (Not Detect) SARS-CoV-2 (PCR) (Not Detecte) Coronavirus NL63 (PCR) (Not Detect) Human Metapneumovir PCR (Not Detect) Influenza Type A (PCR) (Not Detect) Influenza Type B (PCR) (Not Detect) M. pneumoniae (PCR) (Not Detect) Parainfluenza 1 (PCR) (Not Detect) Parainfluenza 2 (PCR) (Not Detect) Parainfluenza 3 (PCR) (Not Detect) Parainfluenza 4 (PCR) (Not Detect) RSV (PCR) (Not Detect) Entero/Rhino (PCR) (Not Detect) ECG Data Interpretation: EKG 1 -atrial fibrillation with rapid ventricular response, 155 beats per minute, no ST T wave changes, no STEMI, normal axis EKG 2 -normal sinus rhythm, 86 beats per minute, normal CA, no ST T wave changes, no STEMI MDM Narrative Medical decision making narrative: Sudden-onset chest pain, shortness of breath, found to be in AFib with RVR. Patient placed on night monitor, initially attempted to rate control with metoprolol, however this did not significantly change patient's heart rate. Labs, imaging obtained. Laboratory work is significant for a white blood cell count of 37, patient denies any recent steroid use. During his spinal injection yesterday patient received 10 mg of dexamethasone and 6 mg of betamethasone, however his last oral steroid intake was many months ago for his lumbar radiculopathy. D-dimer elevated, we will order CT angio. Patient has continued to be in AFib with RVR despite 3 doses of metoprolol Chest x-ray negative for acute findings. CTA of the chest shows no pulmonary embolism. Since patient had abrupt and noticeable onset of his atrial fibrillation plan to attempt to electrically cardiovert. Patient's case discussed with on-call Cardiology Dr. Desouza, who agreed with electrical cardioversion and stated that patient would need to be on beta-blockers and blood thinners postprocedure. Patient and consented to electric cardioversion. Single cardioversion attempt at synchronized 120 joules performed with conversion to normal sinus rhythm. Patient observed postprocedure and he remained in sinus rhythm without return of his AFib. Patient given a dose of metoprolol and Eliquis in the emergency department. Patient was counseled of his diagnosis. There is no definite etiology of patient's leukocytosis, however up until this evening the patient states he was in his usual state of health and did not feel abnormally other than his chronic lumbar back pain. He was informed of his leukocytosis and the importance of following up with his primary care physician. He was also counseled to follow up with Cardiology and a referral was provided. Metoprolol and Eliquis sent to pharmacy of choice. Critical Care Time Critical Care Time Critical Care Time: Yes Total Critical Care Time: 42 Attestation: AFib with RVR requiring electric cardioversion. Discharge Plan Departure Patient Disposition: Home Clinical Impression: Atrial fibrillation with rapid ventricular response, Leukocytosis Instructions: DI for Atrial Fibrillation Activity Restrictions/Additional Instructions: Your heart was in atrial fibrillation today with rapid ventricular response. After a single shock your heart rate went back to normal sinus rhythm. Your electrolytes, heart enzymes, chest x-ray, CT of your chest were all normal and did not give any clue as to why your heart went into this rhythm today. It was also noted that you had a very high white blood cell count. I do not know where this white blood cell count came from, but it was extremely important he follow with your primary care physician for further monitoring and any additional testing that may be needed. Cardiology recommends that you start on a twice daily beta-enedina, this will help your heart rate and blood pressure, this medication is called metoprolol. Atrial fibrillation increases risk of strokes and so cardiology also recommended that you start a twice daily blood thinner, this has been sent to the pharmacy of choice. Prescriptions: New metoprolol tartrate 25 mg tablet 25 mg PO BID Qty: 60 0RF Eliquis 5 mg tablet 5 mg PO BID Qty: 60 0RF No Action tizanidine 2 mg tablet 2 mg PO BID PRN (Reason: muscle spasticity) Qty: 60 2RF celecoxib [Celebrex] 200 mg capsule 200 mg PO DAILY Qty: 30 2RF amlodipine 5 mg tablet 5 mg PO DAILY Qty: 90 3RF lovastatin 20 mg tablet 20 mg PO BEDTIME Qty: 90 3RF bupropion HCl 150 mg tablet sustained-release 12 hr 150 mg PO BID Qty: 180 3RF testosterone 20.25 mg/1.25 gram (1.62 %) gel in metered-dose pump See Rx Instructions .ROUTE .COMPLEX Qty: 75 5RF Rx Instructions: Two pumps topically daily over 1 upper arm diazepam [Valium] 10 mg tablet 10 mg PO .COMPLEX MDD 3 tabs PRN (Reason: 1-2 prior to MRI and for possible steroid flare) Qty: 10 0RF Rx Instructions: 10 mg PO PRN; gabapentin 600 mg tablet 1,200 mg PO TID Qty: 540 3RF allopurinol 300 mg tablet See Rx Instructions .ROUTE .COMPLEX Qty: 90 3RF Dose Instruction: take 1 tablet by mouth once daily Rx Instructions: take 1 tablet by mouth once daily metoprolol tartrate 50 mg tablet See Rx Instructions .ROUTE .COMPLEX Qty: 180 3RF Dose Instruction: take 1 tablet by mouth twice a day Rx Instructions: take 1 tablet by mouth twice a day methylprednisolone [Medrol (Eddie)] 4 mg tablets,dose pack See Rx Instructions PO PER PKG DIR Qty: 21 0RF Rx Instructions: PO PER PKG DIR Referrals: Chemo Cherry DO [Primary Care Provider] - Stand Alone Forms: Patient Portal/API
[2023-11-04] MEDS: SODIUM CHLORIDE 0.9% 1,000 ML 1000 ML IV ×2 (19:56→22:45)
[2023-11-04] MEDS: METOPROLOL TARTRATE 5 MG/5 ML INJ IV ×3 (19:58→20:14)
[2023-11-04 20:05] LABS: Hematocrit 44.8 % (41-53); Mean Corpuscular HGB Conc 33.4 % (30-36); Mean Corpuscular Hemoglobin 28.8 PG (26-34); Mean Corpuscular Volume 86.2 fL (80-100); Platelet Count 260 X10^3/uL (150-400); Red Blood Cell Count 5.19 X10^6/uL (4.5-5.9); Red Cell Distribution Width 13.3 % (11.6-14.8)
[2023-11-04 20:08] LABS: INR 0.9 (0.9-1.3); Prothrombin Time 10.8 SECONDS (9.4-12.5)
[2023-11-04 20:12] LABS: Add Manual Diff / Slide Review YES; White Blood Cell Count 37.1 X10^3/uL (4.5-11.0)
[2023-11-04 20:15] LABS: D Dimer 947 ng/ml (<500)
[2023-11-04 20:21] LABS: Alanine Aminotransferase 29 IU/L (<50); Albumin 4.8 g/dL (3.5-5.0); Albumin Globulin Ratio 1.4 (1.0-2.8); Alkaline Phosphatase 72 U/L (38-126); Aspartate Aminotransferase 39 IU/L (17-59); BUN Creatinine Ratio 17.6 (6-22); Bilirubin Total 0.7 mg/dL (0.2-1.3); Blood Urea Nitrogen 23 mg/dL (9-20); Calcium 10.2 mg/dL (8.4-10.2); Carbon Dioxide 19 mmol/L (22-32); Chloride 109 mmol/L (98-107); Creatine Kinase 131 U/L (55-170); Estimated Glomerular Filt Rate > 60 mL/min (>60); Globulin 3.4 g/dL (1.7-4.1); Glucose 198 mg/dL (70-100); Potassium 4.4 mmol/L (3.4-5.1); Sodium 140 mmol/L (137-145); Total Protein 8.2 g/dL (6.3-8.2)
[2023-11-04 20:26] LABS: Neutrophils Absolute Manual 30422 /uL (3000-5900); Total Cells Counted 100
[2023-11-04 20:27] LABS: HEMOLYSIS 63 (0-50)
[2023-11-04 20:28] LABS: RBC Morphology Normal Morphology
[2023-11-04 20:33] LABS: Troponin I < 0.012 ng/mL (0.01-0.034)
--- NOTE | 2023-11-04 20:38 | DI.CT.S_ITS ---
PROCEDURE: CT ANGIO CHEST PE PROTOCOL INDICATIONS: NEW AFIB RVR, ELEVATED DIMER, PROFOUND LEUKOCYTOSIS TECHNIQUE: After the administration of intravenous contrast, 2 mm thick sections acquired from the pulmonary apices to the posterior costophrenic angles. 3-dimensional maximum intensity projection (MIP) coronal and sagittal reformats were then acquired through the thorax. For radiation dose reduction, the following was used: automated exposure control, adjustment of mA and/or kV according to patient size. COMPARISON: None. FINDINGS: Image quality: Diagnostic. Pulmonary arteries: Pulmonary arteries are normal in size, and demonstrate no intraluminal filling defects to suggest central pulmonary embolism. Lower Neck: No enlarged lymph nodes. Thyroid: No thyroid nodules which require sonographic follow up, per consensus guidelines. Axillae: No enlarged lymph nodes. Chest Wall: Unremarkable. Bones: Unremarkable. Lungs and Pleura: No pneumothorax or pleural effusions. No consolidation or suspicious nodules. Heart: Heart size is normal. No pericardial effusion. Thoracic Vessels: No aortic aneurysm. Mediastinum and Nathalie: No enlarged lymph nodes. Esophagus: No wall thickening. No hiatal hernia. Upper Abdomen: Visualized upper abdomen solid organs and bowel loops appear normal. IMPRESSION: No pulmonary embolus. No acute cardiopulmonary process. Dictated by: Singh Frias M.D. on 11/04/2023 at 21:20 Approved by: Singh Frias M.D. on 11/04/2023 at 21:22
[2023-11-04 21:15] LABS: Ethanol (ETOH) < 10 mg/dL
[2023-11-04 21:16] LABS: Lactate (Lactic Acid) 4.5 mmol/L (0.7-2.1)
[2023-11-04 21:17] LABS: Adenovirus Not Detected (Not Detect); B. parapertussis Not Detected (Not Detecte); Bordetella pertussis Not Detected (Not Detect); Chlamydophila pneumoniae Not Detected (Not Detect); Coronavirus 229E Not Detected (Not Detect); Coronavirus HKU1 Not Detected (Not Detect); Coronavirus NL 63 Not Detected (Not Detect); Coronavirus OC43 Not Detected (Not Detect); Human Metapneumovirus Not Detected (Not Detect); Human Rhinovirus/Enterovirus Not Detected (Not Detect); Influenza A Not Detected (Not Detect); Influenza B Not Detected (Not Detect); Mycoplasma pneumoniae Not Detected (Not Detect); Parainfluenza Virus 1 Not Detected (Not Detect); Parainfluenza Virus 2 Not Detected (Not Detect); Parainfluenza Virus 3 Not Detected (Not Detect); Parainfluenza Virus 4 Not Detected (Not Detect); Respiratory Syncytial Virus Not Detected (Not Detect); SARS- CoV-2 Not Detected (Not Detecte)
[2023-11-04 22:24] LABS: NT-proBNP (BNP-Adult 18+) 323 pg/mL (<125)
[2023-11-04 22:33] LABS: Reflexed Lactate in 2 Hours Y
[2023-11-04 22:52] LABS: UR Morphine/Opiate cutoff 300 Negative (Negative); Urine Amphetamines Negative (Negative); Urine Barbiturates Negative (Negative); Urine Benzodiazepines Positive (Negative); Urine Cocaine Negative (Negative); Urine MDMA Negative (Negative); Urine Methadone Negative (Negative); Urine Methamphetamines Negative (Negative); Urine Oxycodone Negative (Negative); Urine Phencyclidine Negative (Negative); Urine Tetrahydrocannabinol Negative (Negative); Urine Tricyclic Antidepressant Negative (Negative)
[2023-11-04] MEDS: propofoL 200 MG/20 ML VIAL IV (23:05)
[2023-11-04] MEDS: METOPROLOL IR 25 MG TABLET PO (23:54)
[2023-11-04] MEDS: APIXABAN 5 MG TABLET PO (23:55)
== END 2023-11-05 00:05 | disposition home or self-care (01) ==
PROVIDERS: Emergency Provider Emergency Medicine; PCP Family Medicine
DX: I48.20 Chronic atrial fibrillation, unspecified (principal); R06.02 Shortness of breath; D72.829 Elevated white blood cell count, unspecified; Z79.01 Long term (current) use of anticoagulants
CPT/HCPCS: 36415; 71045; 71275; 80053; 80305; 80320; 82550; 83605; 83880; 84443; 84484; 85007; 85025; 85379; 85610; 87040; 87633; 93005; 96361; 96374; 99285; 99291; J2704; Q9967

== ENCOUNTER → 2023-11-05 15:52 | Outpatient (CLI) | payer OTHER, SELFPAY ==
--- NOTE | 2023-11-05 16:00 | DI.CT.S_ITS ---
PROCEDURE: CT CHEST ABD PEL W CON INDICATIONS: rule out lymphoma TECHNIQUE: After the administration of intravenous contrast, 5 mm thick sections acquired from the lung apices to the symphysis. 5 mm coronal and sagittal reformats were performed, with additional 7 mm MIP reformats through the lungs. For radiation dose reduction, the following was used: automated exposure control, adjustment of mA and/or kV according to patient size. COMPARISON: [facility], CT, CT ANGIO CHEST PE PROTOCOL, 11/04/2023, 21:03. FINDINGS: Image quality: Excellent. CHEST: Lower Neck: No visible adenopathy. Thyroid: Normal CT appearance. Axillae: No adenopathy. Specifically, no masses in the right axilla. Chest Wall: Unremarkable. Lungs and Pleura: No pneumothorax or pleural effusions. No consolidation or suspicious nodules. Heart: Heart size is normal. No pericardial effusion. Thoracic Vessels: The aorta and pulmonary arteries demonstrate normal size. Mediastinum and Nathalie: No enlarged lymph nodes. Esophagus: No wall thickening. No hiatal hernia. ABDOMEN: Liver: No solid mass. Gallbladder: Decompressed. Biliary ducts: No biliary dilatation Pancreas: Normal. Spleen: Normal size. Adrenal Glands: No adrenal nodules. Kidneys and Ureters: Symmetric enhancement. No nephrolithiasis or hydronephrosis. No hydroureter. Stomach and Bowel: Distended stomach with ingested material. The wall is not well able to be evaluated. Normal large and small bowel loops. Normal appendix. No suspicious bowel wall thickening. Peritoneum: No abnormal intraperitoneal fluid. No free air. No suspicious inflammation. Ventral Wall: No significant ventral hernia. Abdominal Nodes: No mesenteric or retroperitoneal adenopathy or mass. Vessels: Aorta and inferior vena cava are normal in size. PELVIS: Pelvic Organs: Unremarkable. Bladder: No bladder wall thickening, accounting for underdistention. Pelvic Nodes: No enlarged lymph nodes. Miscellaneous: No inguinal hernias are seen. Bones: No aggressive osseous abnormality. IMPRESSION: No evidence of suspicious adenopathy or suspicious mass in the chest, abdomen, or pelvis. Dictated by: Jackie Wheeler M.D. on 11/05/2023 at 18:23 Approved by: Jackie Wheeler M.D. on 11/05/2023 at 18:29
== END ==
PROVIDERS: PCP Family Medicine; Referring Provider Surgery; Visit Provider Surgery
DX: D72.829 Elevated white blood cell count, unspecified (principal); R59.9 Enlarged lymph nodes, unspecified
CPT/HCPCS: 71260; 74177; Q9967

== ENCOUNTER → 2023-11-09 14:41 | Outpatient (CLI) | payer OTHER, SELFPAY ==
[2023-11-09 15:10] LABS: Hematocrit 47.2 % (41-53); Hemoglobin 16.5 g/dL (13.5-17.5); Mean Corpuscular Hemoglobin 29.8 PG (26-34); Mean Corpuscular Volume 85.1 fL (80-100); Platelet Count 280 X10^3/uL (150-400); Red Blood Cell Count 5.55 X10^6/uL (4.5-5.9); Red Cell Distribution Width 13.5 % (11.6-14.8); White Blood Cell Count 15.8 X10^3/uL (4.5-11.0)
[2023-11-09 16:33] LABS: Neutrophils Absolute Manual 10902 /uL (3000-5900); Nucleated Red Blood Cells 1 #/Diff; Total Cells Counted 100
== END ==
PROVIDERS: PCP Family Medicine; Referring Provider Surgery; Visit Provider Surgery
DX: D72.829 Elevated white blood cell count, unspecified (principal)
CPT/HCPCS: 36415; 85025

== ENCOUNTER → 2023-11-23 12:55 | Outpatient (CLI) | payer OTHER, SELFPAY ==
[2023-11-23 13:55] LABS: Add Manual Diff / Slide Review NO; Basophils Absolute Auto 100 /uL (0-100); Basophils Percent Auto 1.2 % (0-2); Eosinophils Absolute Auto 100 /uL (0-450); Eosinophils Percent Auto 0.9 % (2-4); Hematocrit 43.8 % (41-53); Hemoglobin 14.9 g/dL (13.5-17.5); Lymphocytes Absolute Auto 2200 /uL (1100-4500); Lymphocytes Percent Auto 23.1 % (25-40); Mean Corpuscular HGB Conc 34.1 % (30-36); Mean Corpuscular Hemoglobin 29.6 PG (26-34); Monocytes Absolute Auto 700 /uL (0-900); Monocytes Percent Auto 7.1 % (3-14); Neutrophils Absolute Auto 6400 /uL (1500-7000); Neutrophils Percent Auto 67.7 % (50-75); Platelet Count 239 X10^3/uL (150-400); Red Blood Cell Count 5.03 X10^6/uL (4.5-5.9); Red Cell Distribution Width 13.3 % (11.6-14.8); White Blood Cell Count 9.5 X10^3/uL (4.5-11.0)
== END ==
PROVIDERS: PCP Family Medicine; Referring Provider Family Medicine; Visit Provider Family Medicine
DX: D72.820 Lymphocytosis (symptomatic) (principal)
CPT/HCPCS: 36415; 85025

== ENCOUNTER → 2024-01-21 08:31 | Outpatient (CLI) | payer OTHER, SELFPAY ==
[2024-01-21 10:08] LABS: BUN Creatinine Ratio 14.9 (6-22); Blood Urea Nitrogen 15 mg/dL (9-20); Calcium 9.4 mg/dL (8.4-10.2); Carbon Dioxide 26 mmol/L (22-32); Chloride 106 mmol/L (98-107); Estimated Glomerular Filt Rate > 60 mL/min (>60); Glucose 93 mg/dL (70-100); HEMOLYSIS < 15 (0-50); Potassium 4.4 mmol/L (3.4-5.1); Sodium 139 mmol/L (137-145)
== END ==
PROVIDERS: PCP Family Medicine; Referring Provider Internal Medicine; Visit Provider Internal Medicine
DX: I48.91 Unspecified atrial fibrillation (principal)
CPT/HCPCS: 36415; 80048

== ENCOUNTER → 2024-02-04 06:45 | Outpatient (CLI) | payer OTHER, SELFPAY ==
--- NOTE | 2024-02-04 06:46 | DI.ECHO.S_ITS ---
Version: 1 Study ID: [id number] [address] [place] [id number] Name: SHAWNA GARZA Study Date: 02/04/2024, 7: 20 AM : 1975 BP: 167 / 92 mmHg Gender: Male Height: 72 in Age: 48 Years Weight: 270 lb BSA: 2.42 mA? Ordering: MARCOS VERGARA Referring: MARCOS VERGARA Clinician: Damaris Jacob Reason For Study: ATRIAL FIBRILLATION History: Summary Statements Normal sinus rhythm and uncontrolled hypertension. Normal LV size, wall thickness, wall motion and LV systolic function. EF is 60-65%. Borderline LA enlargement; otherwise normal chamber sizes. No significant valvular abnormalities. No prior study available for comparison. Procedure: A two-dimensional transthoracic echocardiogram with color flow and Doppler was performed. The study quality was technically adequate. There is no prior echocardiogram noted for this patient. The patient was in sinus rhythm with heart rates between 64-70 bpm during the exam. Left Ventricle: The left ventricle is normal in size. The ejection fraction is estimated to be 60-65%. Right Ventricle: The right ventricle is borderline dilated. The right ventricular systolic function is normal. Atria: The left atrium is borderline dilated. Right atrial size is normal. There is no Doppler evidence for an interatrial shunt. Mitral Valve: The mitral valve is normal in structure and function. There is mild mitral regurgitation. Aortic Valve: The aortic valve is trileaflet. The aortic valve opens well. There is no aortic valve stenosis. No aortic regurgitation is present. Tricuspid Valve: The tricuspid valve is normal in structure and function. There is trace tricuspid regurgitation. Pulmonic Valve: The pulmonic valve leaflets are thin and pliable; valve motion is normal. There is trace pulmonic regurgitation. Great Vessels: The aortic root is normal size. The dimensions of the ascending aorta are normal. The IVC is of normal diameter and collapses greater than 50% with a sniff. This suggests a low right atrial pressure of 3 mm Hg. Pericardium/ Pleura: There is no pericardial effusion. There is no pleural effusion. 2D and M-Mode Measurements and Calculations LVIDd: 5.8 cm LVOT diam: 2.25 cm LVIDs: 3.7 cm Ao root diam: 3.4 cm IVSd: 1.05 cm asc Aorta Diam: 3.2 cm LVPWd: 1.04 cm Ao Arch Diam (Prox Trans): 2.9 cm LV fleming. diameter/BSA (cm/m^2): 2.40 LV sys. diameter/BSA (cm/m^2): 1.53 RVD1 (basal): 4.1 cm RVD2 (mid): 3.2 cm TAPSE: 2.45 cm LA A4 area: 17.9 mechanical service representative? IVC diam: 1.81 cm LA A2 area: 25.0 mechanical service representative? RA area: 16.9 mechanical service representative? LA length (vol): 6.0 cm RA long axis: 5.0 cm LA vol: 63.5 ml RA vol: 48.8 ml LA vol index: 26.2 ml/mA? RA : 20.1 ml/mA? Doppler Measurements and Calculations Ao V2 max: 130.9 cm/sec LVOT Max Oliver: 91.0 cm/sec Ao V2 mean: 103.4 cm/sec LV V1 max P.3 mmHg Ao V2 VTI: 26.8 cm LV V1 VTI: 19.5 cm Ao max P.9 mmHg SV(LVOT): 77.5 ml Ao mean P.6 mmHg FENG(I,D): 2.9 mechanical service representative? FENG(V,D): 2.8 mechanical service representative? FENG indexed to BSA (cm^2/m^2): 1.20 sev ratio: 0.73 MV E max oliver: 70.5 cm/sec MV dec time: 0.15 sec MV A max oliver: 42.7 cm/sec MV E/A: 1.65 Med Peak E' Oliver: 9.5 cm/sec Lat Peak E' Oliver: 13.3 cm/sec E/e' average: 6.4 PA V2 max: 108.2 cm/sec PA mean P.27 mmHg Marcos Vergara M.D. Electronically signed by: Marcos Vergara M.D. 02/08/2024, 4: 46 PM
== END ==
LOC: ECHO 06:45
PROVIDERS: PCP Family Medicine; Referring Provider Internal Medicine; Visit Provider Internal Medicine
DX: I48.91 Unspecified atrial fibrillation (principal); I10 Essential (primary) hypertension
CPT/HCPCS: 93306

== ENCOUNTER → 2024-02-09 15:05 | Outpatient (CLI) | payer OTHER, SELFPAY ==
--- NOTE | 2024-02-09 15:07 | DI.NM.S_ITS ---
PROCEDURE: NM EXERCISE TREADMILL NON NUC COMPARISON: None. INDICATIONS: Unspecified atrial fibrillation FINDINGS: The patient exercised for 9 minutes and 46 seconds, reaching 93% of maximum predicted heart rate. Borderline hypertensive response to exercise (resting BP 122/90mmHg, max BP 166/100mmHg). No diagnostic ST changes or angina during exercise or recovery. Rare PVCs present. IMPRESSION: Low risk, normal treadmill ECG only stress test with fair exercise tolerance (10.1 METs). Target heart rate reached. Borderline hypertensive response to exercise (resting BP 122/90mmHg, max BP 166/100mmHg). Dictated by: Luly Daniel MD on 02/09/2024 at 16:06 Approved by: Luly Daniel MD on 02/09/2024 at 16:09
== END ==
PROVIDERS: PCP Family Medicine; Referring Provider Internal Medicine; Visit Provider Internal Medicine
DX: I48.91 Unspecified atrial fibrillation (principal)
CPT/HCPCS: 93016; 93017; 93018

== ENCOUNTER → 2024-05-28 10:23 | Outpatient (CLI) | payer OTHER, SELFPAY ==
[2024-05-28 10:45] LABS: Add Manual Diff / Slide Review NO; Basophils Absolute Auto 400 /uL (0-100); Basophils Percent Auto 4.6 % (0-2); Eosinophils Absolute Auto 100 /uL (0-450); Eosinophils Percent Auto 0.7 % (2-4); Hemoglobin 14.8 g/dL (13.5-17.5); Lymphocytes Absolute Auto 1400 /uL (1100-4500); Mean Corpuscular HGB Conc 33.6 % (30-36); Mean Corpuscular Volume 86.2 fL (80-100); Monocytes Absolute Auto 500 /uL (0-900); Monocytes Percent Auto 5.9 % (3-14); Neutrophils Absolute Auto 5600 /uL (1500-7000); Neutrophils Percent Auto 70.8 % (50-75); Platelet Count 247 X10^3/uL (150-400); Red Blood Cell Count 5.11 X10^6/uL (4.5-5.9); Red Cell Distribution Width 13.7 % (11.6-14.8); White Blood Cell Count 7.9 X10^3/uL (4.5-11.0)
[2024-05-28 11:04] LABS: Alanine Aminotransferase 24 IU/L (<50); Albumin 4.5 g/dL (3.5-5.0); Albumin Globulin Ratio 1.9 (1.0-2.8); Alkaline Phosphatase 70 U/L (38-126); Aspartate Aminotransferase 29 IU/L (17-59); BUN Creatinine Ratio 15.2 (6-22); Bilirubin Total 0.9 mg/dL (0.2-1.3); Blood Urea Nitrogen 15 mg/dL (9-20); Calcium 9.5 mg/dL (8.4-10.2); Carbon Dioxide 22 mmol/L (22-32); Chloride 106 mmol/L (98-107); Cholesterol 197 mg/dL (140-199); Estimated Glomerular Filt Rate > 60 mL/min (>60); Globulin 2.4 g/dL (1.7-4.1); Glucose 96 mg/dL (70-100); HDL Cholesterol 35 mg/dL (40-60); HEMOLYSIS < 15 (0-50); LDL Cholesterol Calculated 127 mg/dL (<100); Potassium 4.6 mmol/L (3.4-5.1); Sodium 139 mmol/L (137-145); Total Protein 6.9 g/dL (6.3-8.2); Triglycerides 173 mg/dL (35-150)
== END ==
PROVIDERS: PCP Family Medicine; Referring Provider Family Medicine; Visit Provider Family Medicine
DX: E78.2 Mixed hyperlipidemia (principal); I10 Essential (primary) hypertension; E34.9 Endocrine disorder, unspecified; Z68.41 Body mass index [BMI] 40.0-44.9, adult
CPT/HCPCS: 36415; 80053; 80061; 84402; 84403; 85025

== ENCOUNTER → 2024-08-12 10:10 | Outpatient (CLI) | payer OTHER, SELFPAY ==
[2024-08-12 12:28] LABS: Cholesterol 230 mg/dL (140-199); HDL Cholesterol 38 mg/dL (40-60); LDL Cholesterol Calculated 167 mg/dL (<100); Triglycerides 123 mg/dL (35-150)
[2024-08-12 12:29] LABS: Creatinine Urine Random 22.49 mg/dL
[2024-08-12 12:34] LABS: Microalbumin Urine Random < 0.6 mg/dL (0-1.6)
[2024-08-12 12:54] LABS: Prostate Specific Antigen Scrn 1.18 ng/mL (0.1-4.0)
[2024-08-21 11:40] LABS: Percent Free Testosterone 3.95 % (1.50-4.20); Testosterone Free 5.55 ng/dL (5.00-21.00); Testosterone Total 140.5 ng/dL (264.0-916.0)
== END ==
PROVIDERS: Physician Assistant; PCP Family Medicine; Referring Provider Family Medicine; Visit Provider Family Medicine
DX: Z12.5 Encounter for screening for malignant neoplasm of prostate (principal); E34.9 Endocrine disorder, unspecified; E78.2 Mixed hyperlipidemia; I10 Essential (primary) hypertension
CPT/HCPCS: 36415; 80061; 82043; 82570; 84402; 84403; G0103

== ENCOUNTER 2024-08-25 16:03 | Emergency (ER) | payer OTHER, SELFPAY ==
[2024-08-25 16:15] VITALS: BP 139/83; PULSE 73; RESP 12; TEMP 36.3; O2SAT 99; BMI 37.3
== END 2024-08-25 17:43 | disposition left against medical advice (07) ==
PROVIDERS: Emergency Provider Emergency Medicine; PCP Family Medicine
CPT/HCPCS: 99281

== ENCOUNTER 2024-08-26 01:36 | Emergency (ER) | payer OTHER, SELFPAY ==
[2024-08-26 01:43] VITALS: BP 160/98; PULSE 67; RESP 18; TEMP 36.2; O2SAT 98; BMI 37.3
[2024-08-26] MEDS: diazePAM 10 MG/2 ML SYRINGE 3 MG IV (02:04)
[2024-08-26] MEDS: KETOROLAC 30 MG/ML VIAL 15 MG IV (02:05)
[2024-08-26] MEDS: ACETAMINOPHEN IV 1,000 MG/100 ML VIAL 400 MG IV (02:06)
[2024-08-26] MEDS: LIDOCAINE 5% PATCH 1 EACH TOP (02:08)
--- NOTE | 2024-08-26 02:30 | ED.BACK ---
HPI - Back Pain/Injury General Chief Complaint: Back Pain/Injury Stated Complaint: lower back pain Time Seen by Provider: 08/26/24 01:36 Source: patient History of Present Illness HPI Narrative: 49-year-old male presents for 2 days of left-sided lumbar backPain. Patient states that the day before symptoms started he has been painting all day long. Patient took gabapentin for symptoms without significant relief, last took gabapentin yesterday. He presented to the ER yesterday, but due to the weight he left before he was evaluated or received treatment. Denies bowel or bladder incontinence, denies saddle anesthesia, denies leg weakness or other symptoms at this time. Related Data Home Medications Medication Instructions Recorded Confirmed losartan 100 mg tablet 100 mg PO DAILY 01/08/24 08/24/24 metoprolol succinate 25 mg 25 mg PO DAILY 06/01/24 08/24/24 tablet,extended release 24 hr (Toprol XL) Previous Rx's Medication Instructions Recorded allopurinol 300 mg tablet See Rx Instructions .Route 08/06/23 .COMPLEX #90 tabs lovastatin 40 mg tablet 40 mg PO QPM #30 tabs 06/01/24 hydrocodone 7.5 mg-acetaminophen See Rx Instructions .Route 06/08/24 325 mg tablet .COMPLEX #120 tabs bupropion HCl 150 mg tablet,12 hr 150 mg PO BID #180 tabs 06/24/24 sustained-release hydroxyzine HCl 25 mg tablet 25 mg PO BID PRN anxiety #60 tabs 06/24/24 sertraline 25 mg tablet 25 mg PO DAILY #60 tabs 06/24/24 gabapentin 600 mg tablet 600 mg PO .COMPLEX #540 tabs 07/11/24 testosterone See Rx Instructions .Route 08/24/24 .COMPLEX #75 grams methocarbamol 500 mg tablet 500 mg PO TID PRN muscle spasm #30 08/26/24 tabs Allergies Allergy/AdvReac Type Severity Reaction Status Date / Time No Known Drug Allergies Allergy Unknown Verified 08/24/24 14:08 [NO KNOWN DRUG ALLERGIES] Patient History Medical History Generalized anxiety disorder with panic attacks GERD (gastroesophageal reflux disease) History of atrial fibrillation Atrial fibrillation with RVR Facet arthropathy, lumbar Lumbar radiculopathy Acute low back pain with left-sided sciatica Chronic thoracic back pain Sacral region somatic dysfunction Pelvic somatic dysfunction Segmental and somatic dysfunction of abdomen and other regions Lumbar region somatic dysfunction Segmental and somatic dysfunction of rib cage Thoracic region somatic dysfunction Cervical somatic dysfunction Cranial somatic dysfunction Lower urinary tract symptoms (LUTS) Testosterone deficiency HNP (herniated nucleus pulposus), cervical Facet arthropathy, cervical Essential hypertension Low back pain BMI 40.0-44.9, adult Depression (11/03/16) Gout (04/19/15) Surgical History S/P cervical spinal fusion Family History Father No problems noted. Mother Brain aneurysm Multiple sclerosis Social History Smoking Status: Former smoker alcohol intake: never substance use type: does not use Smoking Status: Former smoker alcohol intake frequency: holidays/special occasions only Substance Use Type: does not use Exam Initial Vital Signs Initial Vital Signs: Vital Signs Temperature 97.1 F L 08/26/24 01:43 Pulse Rate 67 08/26/24 01:43 Respiratory Rate 18 08/26/24 01:43 Blood Pressure 160/98 H 08/26/24 01:43 Pulse Oximetry 98 08/26/24 01:43 Oxygen Delivery Method Room Air 08/26/24 01:43 Const: Awake, alert, no acute distress, nontoxic appearing MSK: No midline tenderness, L sided lumbar paraspinal tenderness to deep palpation Skin: Warm, Dry, intact, no rashes Neuro: AO x3, CN II-XII grossly intact, moves all extremities Course Orders Ordered: Discontinued Medications Diazepam (Diazepam 10 Mg/2 Ml Syringe) 3 mg IV NOW ONE Stop: 08/26/24 01:51 Last Admin: 08/26/24 02:04 Dose: 3 mg Documented By: JACKIE Acetaminophen (Ofirmev) 1,000 mg in 100 mls @ 400 mls/hr IV NOW ONE Stop: 08/26/24 02:04 Last Infusion: 08/26/24 02:24 Dose: Infused Documented By: Admin: 08/26/24 02:06 Dose: 400 mls/hr Documented By: JACKIE Ketorolac Tromethamine (Ketorolac 30 Mg/Ml Vial) 15 mg IV NOW ONE Stop: 08/26/24 01:51 Last Admin: 08/26/24 02:05 Dose: 15 mg Documented By: JACKIE Lidocaine (Lidocaine 5% Patch) 1 each TOP NOW ONE Stop: 08/26/24 01:51 Last Admin: 08/26/24 02:08 Dose: 1 each Documented By: JACKIE Vital Signs Vital signs: Vital Signs - 8 hr 08/26/24 01:43 08/26/24 02:46 08/26/24 03:12 Temperature 97.1 F L Pulse Rate 67 74 70 Respiratory Rate 18 18 18 Blood Pressure 160/98 H 126/81 129/86 Pulse Oximetry 98 97 97 Oxygen Delivery Method Room Air Room Air Room Air MDM - Back Pain/Injury MDM Narrative Medical decision making narrative: atraumatic lumbar paraspinal pain after Spending the day painting. No signs or symptoms of cauda equina. no indication for imaging at this time.\ Patient reports significant improvement in symptoms after medication administration. Patient counseled on supportive care measures for home. Muscle relaxers sent to pharmacy of choice Discharge Plan Departure Patient Disposition: Home Clinical Impression: Lumbar strain Instructions: DI for Back Strain or Sprain Activity Restrictions/Additional Instructions: take Tylenol and ibuprofen per label instructions for low back pain. Use gentle stretching exercises as needed for your low back. You may also apply heat and ice for comfort. Prescriptions: New methocarbamol 500 mg tablet 500 mg PO TID PRN (Reason: muscle spasm) Qty: 30 0RF No Action losartan 100 mg tablet 100 mg PO DAILY metoprolol succinate [Toprol XL] 25 mg tablet extended release 24 hr 25 mg PO DAILY hydrocodone-acetaminophen 7.5-325 mg tablet See Rx Instructions .ROUTE .COMPLEX Qty: 120 0RF Rx Instructions: Take 1 tablet by mouth every 6 hours as needed for pain EXEMPT gabapentin 600 mg tablet 600 mg PO .COMPLEX Qty: 540 0RF Rx Instructions: 600 mg orally take 1 tablet by mouth 6 times a day; lovastatin 40 mg tablet 40 mg PO QPM Qty: 30 1RF sertraline 25 mg tablet 25 mg PO DAILY Qty: 60 1RF Rx Instructions: increase to 2 tabs daily after 2 weeks if needed hydroxyzine HCl 25 mg tablet 25 mg PO BID PRN (Reason: anxiety) Qty: 60 0RF bupropion HCl 150 mg tablet sustained-release 12 hr 150 mg PO BID Qty: 180 3RF allopurinol 300 mg tablet See Rx Instructions .ROUTE .COMPLEX Qty: 90 3RF Dose Instruction: take 1 tablet by mouth once daily Rx Instructions: take 1 tablet by mouth once daily testosterone 20.25 mg/1.25 gram (1.62 %) gel in metered-dose pump See Rx Instructions .ROUTE .COMPLEX Qty: 75 5RF Rx Instructions: 1.65% 4 pumps topically daily total: 2 pumps applied to right and left upper arms Referrals: Cehmo Cherry DO [Primary Care Provider] - Stand Alone Forms: Patient Portal/API/Survey
[2024-08-26 02:46] VITALS: BP 126/81; PULSE 74; RESP 18; O2SAT 97
[2024-08-26 03:12] VITALS: BP 129/86; PULSE 70; RESP 18; O2SAT 97
== END 2024-08-26 03:18 | disposition home or self-care (01) ==
PROVIDERS: Emergency Provider Emergency Medicine; PCP Family Medicine
DX: S39.012A Strain of muscle, fascia and tendon of lower back, initial encounter (principal); X50.1XXA Overexertion from prolonged static or awkward postures, initial encounter
CPT/HCPCS: 96365; 96375; 99283; 99284; J0134; J1885; J3360

== ENCOUNTER 2024-09-23 11:59 | Day surgery (SDC) | payer OTHER, SELFPAY ==
[2024-09-23 12:45] VITALS: BP 128/83; PULSE 69; RESP 16; TEMP 36.2; O2SAT 98
--- NOTE | 2024-09-23 12:57 | P.HP_ITS ---
History of Present Illness History of Present Illness Date Patient Seen: 09/23/24 Time Patient Seen: 12:57 Chief complaint: SDC Narrative: 49-year-old white male presents for initial screening colonoscopy. [facility] Medical History (Updated 09/23/24 @ 12:58 by Adis Bae MD) Colon cancer screening Generalized anxiety disorder with panic attacks GERD (gastroesophageal reflux disease) History of atrial fibrillation Atrial fibrillation with RVR Facet arthropathy, lumbar Lumbar radiculopathy Acute low back pain with left-sided sciatica Chronic thoracic back pain Sacral region somatic dysfunction Pelvic somatic dysfunction Segmental and somatic dysfunction of abdomen and other regions Lumbar region somatic dysfunction Segmental and somatic dysfunction of rib cage Thoracic region somatic dysfunction Cervical somatic dysfunction Cranial somatic dysfunction Lower urinary tract symptoms (LUTS) Testosterone deficiency HNP (herniated nucleus pulposus), cervical Facet arthropathy, cervical Essential hypertension Low back pain BMI 40.0-44.9, adult Depression (11/03/16) Gout (04/19/15) Surgical History S/P cervical spinal fusion Family History Father No problems noted. Mother Brain aneurysm Multiple sclerosis Social History Smoking Status: Former smoker alcohol intake: never substance use type: does not use Meds Home Medications and Allergies Home Medications Medication Instructions Recorded Confirmed Type losartan 100 mg tablet 100 mg PO DAILY 01/08/24 09/23/24 History metoprolol succinate 25 mg 25 mg PO DAILY 06/01/24 09/23/24 History tablet,extended release 24 hr (Toprol XL) bupropion HCl 150 mg tablet,12 hr 150 mg PO BID #180 tabs 06/24/24 09/23/24 Rx sustained-release sertraline 25 mg tablet 25 mg PO DAILY #60 tabs 06/24/24 09/23/24 Rx testosterone See Rx Instructions .Route 08/24/24 08/24/24 Rx .COMPLEX #75 grams methocarbamol 500 mg tablet 500 mg PO TID PRN muscle spasm #30 08/26/24 Rx tabs allopurinol 300 mg tablet 300 mg PO DAILY #90 tabs 12/04/24 12/20/24 Rx gabapentin 600 mg tablet 600 mg PO DAILY #540 tabs 09/07/24 09/23/24 Rx hydroxyzine HCl 25 mg tablet 25 mg PO BID PRN for anxiety #60 09/07/24 09/23/24 Rx tabs lovastatin 40 mg tablet 40 mg PO QPM #30 tabs 09/07/24 09/23/24 Rx Allergies Allergy/AdvReac Type Severity Reaction Status Date / Time No Known Drug Allergies Allergy Unknown Verified 09/23/24 12:30 [NO KNOWN DRUG ALLERGIES] Review of Systems Review of Systems ROS: Yes All systems reviewed with the patient and are negative except as otherwise documented Exam Vital Signs (past 8 hours): - 09/23/24 12:45 Temperature 97.2 F L Pulse Rate 69 Respiratory Rate 16 Blood Pressure 128/83 Pulse Oximetry 98 Oxygen Delivery Method Room Air Oxygen Delivery Method Room Air Narrative Exam Narrative: Gen: NAD, sitting comfortably in bed, appears well HEENT: Sclera are anicteric, head is normocephalic and atraumatic, trachea is midline. CV: RRR, no JVD Resp: clear to auscultation bilaterally, equal chest wall movement bilaterally Abd: soft, nontender, normoactive bowel sounds Ext: no edema, full range of motion Neuro: Cranial nerves II-XII grossly intact, no focal deficits Skin: No erythema or ecchymosis Assessment & Plan Assessment and plan (1) Colon cancer screening: Status: Acute Assessment & Plan narrative: Patient presents for colonoscopy Risks, benefits, alternatives to colonoscopy explained, including but not limited to bowel perforation or other serious complication requiring surgery at less than 1 in 5000 colonoscopies, abdominal pain, cramping or bleeding and less than 1% of colonoscopies, and the chances that we find a diagnosis that would require further intervention of about 2%. Patient agrees to proceed. Time-Based Coding :: [TOTAL MINUTES] spent with patient and on the chart (including review of chart, obtaining history, exam, reviewing outside data, placing orders, documenting exam and treatment plan, and counseling patient) on [DATE].
--- NOTE | 2024-09-23 13:19 | PM.OP.COLON ---
Operative Date/Time/Diagnoses Date of procedure: 09/23/24 Time of procedure: 13:19 Pre-op diagnosis: Colon screening Post-op diagnosis: same Procedure & Clinicians Study performed: Screening colonoscopy Same procedure as scheduled: Yes Indications: Screening Surgeon: Adis Bae Procedure Notes SCOAP/Timeout: Performed Procedure in detail: Time-out was performed. Mac was induced. Patient was placed in left lateral decubitus position. The perineum was inspected without any gross abnormality. Lubricated pediatric colonoscope was inserted and advanced to the cecum. The terminal ileum was intubated. The colonoscope was withdrawn slowly inspecting the circumference of the colon. Very small polyps may have been missed, prep quality was adequate. Retroflexed view of the rectum showed small, non prolapsed nonbleeding internal hemorrhoids. The scope was withdrawn the patient was taken to PACU in good condition. Scope withdrawal time: 6 Sedation minutes: 12 Findings: internal hemorrhoids Specimen(s): none sent Complications: none Impression: Internal hemorrhoids Post-procedure Recommendations: Colonoscopy in 10 years Plan for aftercare: Home Follow up: as needed Disposition: PACU
[2024-09-23 13:23] VITALS: BP 99/61; PULSE 75; RESP 16; TEMP 36.8; O2SAT 97
[2024-09-23 13:27] VITALS: BP 102/63; PULSE 68; RESP 10; O2SAT 98
[2024-09-23 13:31] VITALS: BP 106/69; PULSE 65; RESP 17; TEMP 36.6; O2SAT 99
== END 2024-09-23 13:40 | disposition home or self-care (01) ==
PROVIDERS: PCP Family Medicine; Referring Provider Surgery; Visit Provider Surgery
PROC: 0DJD8ZZ Inspection of Lower Intestinal Tract, Via Natural or Artificial Opening Endoscopic (ICD-10-PCS; CPT 45378; principal; 2024-09-23 13:15)
DX: Z12.11 Encounter for screening for malignant neoplasm of colon (principal); K64.8 Other hemorrhoids
CPT/HCPCS: 45378; J2704

== ENCOUNTER 2024-12-01 14:26 | Emergency (ER) | payer OTHER, SELFPAY ==
[2024-12-01 14:34] VITALS: BP 134/87; PULSE 72; RESP 16; TEMP 36.9; O2SAT 98; BMI 37.3
--- NOTE | 2024-12-01 15:19 | ED.LOWEXIN ---
HPI - Extremity Injury (Lower) <Dejah Salinas PA-C - Last Filed: 12/01/24 16:46> General Chief Complaint: Extremity Injury, Lower Stated Complaint: rt knee px Time Seen by Provider: 12/01/24 15:19 Source: patient Mode of arrival: Ambulatory History of Present Illness HPI Narrative: Mr. Donaldson is a pleasant 49-year-old male with a past medical history of cervical fusion, hypertension, gout, hyperlipidemia, depression/anxiety presents to the emergency department for acute on chronic right knee pain. Patient states he is suffered with right knee pain for the last year and sensation of grinding/gravel in the knee. Saw his PCP 2 weeks ago who did a right knee steroid injection which helped for a few days. States that today he was working underneath a car and when he stood he was unable to bear weight on the right knee because of severe pain. Describes the pain is primarily in the posterior knee and on the medial joint line. Denies any direct trauma to the knee today. No numbness tingling or weakness. Pain is best when the leg is straight and worse upon bearing weight and bending the leg. No fevers, chills, redness or discoloration of the knee. Related Data Home Medications Medication Instructions Recorded Confirmed losartan 100 mg tablet 100 mg PO DAILY 01/08/24 11/09/24 metoprolol succinate 25 mg 25 mg PO DAILY 06/01/24 11/09/24 tablet,extended release 24 hr (Toprol XL) Previous Rx's Medication Instructions Recorded bupropion HCl 150 mg tablet,12 hr 150 mg PO BID #180 tabs 06/24/24 sustained-release sertraline 25 mg tablet 25 mg PO DAILY #60 tabs 06/24/24 testosterone See Rx Instructions .Route 08/24/24 .COMPLEX #75 grams methocarbamol 500 mg tablet 500 mg PO TID PRN muscle spasm #30 08/26/24 tabs allopurinol 300 mg tablet 300 mg PO DAILY #90 tabs 09/07/24 gabapentin 600 mg tablet 600 mg PO DAILY #540 tabs 09/07/24 hydroxyzine HCl 25 mg tablet 25 mg PO BID PRN for anxiety #60 09/07/24 tabs lovastatin 40 mg tablet 40 mg PO QPM #30 tabs 09/07/24 Allergies Allergy/AdvReac Type Severity Reaction Status Date / Time No Known Drug Allergies Allergy Unknown Verified 12/01/24 14:34 [NO KNOWN DRUG ALLERGIES] Review of Systems <Dejah Salinas PA-C - Last Filed: 12/01/24 16:46> Review of Systems ROS Unobtainable: All systems reviewed & are unremarkable except as noted in HPI and below Patient History <Dejah Salinas PA-C - Last Filed: 12/01/24 16:46> Medical History Chronic pain of right knee Colon cancer screening Generalized anxiety disorder with panic attacks GERD (gastroesophageal reflux disease) History of atrial fibrillation Atrial fibrillation with RVR Facet arthropathy, lumbar Lumbar radiculopathy Acute low back pain with left-sided sciatica Chronic thoracic back pain Sacral region somatic dysfunction Pelvic somatic dysfunction Segmental and somatic dysfunction of abdomen and other regions Lumbar region somatic dysfunction Segmental and somatic dysfunction of rib cage Thoracic region somatic dysfunction Cervical somatic dysfunction Cranial somatic dysfunction Lower urinary tract symptoms (LUTS) Testosterone deficiency HNP (herniated nucleus pulposus), cervical Facet arthropathy, cervical Essential hypertension Low back pain BMI 40.0-44.9, adult Depression (11/03/16) Gout (04/19/15) Surgical History S/P cervical spinal fusion Family History Father No problems noted. Mother Brain aneurysm Multiple sclerosis Social History Smoking Status: Former smoker alcohol intake: never substance use type: does not use Smoking Status: Former smoker alcohol intake frequency: holidays/special occasions only Exam <Dejah Salinas PA-C - Last Filed: 12/01/24 16:46> Narrative Exam Narrative: GENERAL: 49 year old patient appears stated age. Well-developed patient, in no acute distress. HEAD: Atraumatic. Normocephalic. NECK: Trachea midline. Cervical ROM intact. RESPIRATORY: ?Nonlabored respirations. ?Speaking in clear, full sentences. EXTREMITIES: No obvious deformity of right knee, no color change. Subjective pain with flexion of right knee, no reproducible joint laxity. No tenderness to palpation of patella. Strong DP and PT pulses palpated. NEURO: AOx3. ?Clear speech. SKIN: No rash or erythema of visible areas Initial Vital Signs Initial Vital Signs: Vital Signs Temperature 98.5 F 12/01/24 14:34 Pulse Rate 72 12/01/24 14:34 Respiratory Rate 16 12/01/24 14:34 Blood Pressure 134/87 12/01/24 14:34 Pulse Oximetry 98 12/01/24 14:34 Oxygen Delivery Method Room Air 12/01/24 14:34 <Som Stewart MD - Last Filed: 12/02/24 07:13> Initial Vital Signs Initial Vital Signs: Vital Signs Temperature 98.5 F 12/01/24 14:34 Pulse Rate 72 12/01/24 14:34 Respiratory Rate 16 12/01/24 14:34 Blood Pressure 134/87 12/01/24 14:34 Pulse Oximetry 98 12/01/24 14:34 Oxygen Delivery Method Room Air 12/01/24 14:34 Course <Dejah Salinas PA-C - Last Filed: 12/01/24 16:46> Orders Ordered: Discontinued Medications Acetaminophen (Acetaminophen 325 Mg Tablet) 650 mg PO NOW ONE Stop: 12/01/24 15:34 Last Admin: 12/01/24 15:59 Dose: 650 mg Documented By: EYAL Ketorolac Tromethamine (Ketorolac 30 Mg/Ml Vial) 30 mg IM NOW ONE Stop: 12/01/24 15:34 Last Admin: 12/01/24 15:59 Dose: 30 mg Documented By: EYAL Vital Signs Vital signs: Vital Signs - 8 hr 12/01/24 14:34 Temperature 98.5 F Pulse Rate 72 Respiratory Rate 16 Blood Pressure 134/87 Pulse Oximetry 98 Oxygen Delivery Method Room Air <Som Stewart MD - Last Filed: 12/02/24 07:13> Orders Ordered: Discontinued Medications Acetaminophen (Acetaminophen 325 Mg Tablet) 650 mg PO NOW ONE Stop: 12/01/24 15:34 Last Admin: 12/01/24 15:59 Dose: 650 mg Documented By: EYAL Ketorolac Tromethamine (Ketorolac 30 Mg/Ml Vial) 30 mg IM NOW ONE Stop: 12/01/24 15:34 Last Admin: 12/01/24 15:59 Dose: 30 mg Documented By: EYAL Vital Signs Vital signs: Vital Signs - 8 hr 12/01/24 14:34 Temperature 98.5 F Pulse Rate 72 Respiratory Rate 16 Blood Pressure 134/87 Pulse Oximetry 98 Oxygen Delivery Method Room Air MDM - Extremity Injury (Lower) <Dejah Salinas PA-C - Last Filed: 12/01/24 16:46> Medical Records Attestation: I reviewed the patient's medical records. Imaging Data Right Knee X-Ray: Radiologist's Impression: PROCEDURE: XR KNEE RT 3V INDICATIONS: acute on chronic R knee pain TECHNIQUE: 3 views of the knee were acquired. COMPARISON: None. FINDINGS AND IMPRESSION: Mild degenerative changes. No displaced fracture. No dislocation. Small joint effusion. If there is high concern for further derangement, consider MRI evaluation. [facility] Narrative Medical decision making narrative: 49-year-old male with a past medical history of cervical fusion, hypertension, gout, hyperlipidemia, depression/anxiety presents to the emergency department for acute on chronic right knee pain. Differential diagnosis includes but is not limited to osteoarthritis, effusion, fracture, sprain, strain, meniscus injury, ligament injury, etc. On exam patient is in no acute distress, nontoxic-appearing, all vital signs within normal limits. No gross deformity of the right knee in no reproducible laxity. No signs of infection. We will obtain x-ray and treat with Toradol and Tylenol. Patient states pain improved after ED treatment. Right knee Armando wrap was applied. X-ray results discussed which reveals small joint effusion and mild degenerative changes. Recommended rice therapy, ibuprofen and acetaminophen, follow up with PCP and Orthopedics. Patient declined crutches use. Discussed ED return precautions. He verbalized understanding of all information is agreeable with the plan. He is stable for discharge home. Discharge Plan Departure Patient Disposition: Home Clinical Impression: Effusion of knee joint right Degenerative arthritis of right knee Qualifiers: Osteoarthritis type: unspecified Qualified Code(s): M17.11 - Unilateral primary osteoarthritis, right knee Instructions: DI for Knee Pain Activity Restrictions/Additional Instructions: Dear Cristal Donaldson, Thank you for coming to the emergency department today. We obtained an x-ray of your right knee which revealed degenerative changes and a small joint effusion. I would like you to follow up with your primary care doctor in addition to [facility] for further evaluation. You can call to schedule an appointment with the orthopedic doctor's office at [phone]. Please use RICE therapy for your pain in addition to ibuprofen/acetaminophen. Rest the painful area. Ice the area of pain/swelling for at least 15 minutes, 4x a day. Compress the area of swelling using a brace, wrap, or splint if applied. Elevate the painful or swollen extremity by supporting it above the level of the heart with pillows when sitting or laying. Please take Ibuprofen (Motrin/Advil) or Acetaminophen (Tylenol) for pain. These are available over the counter. You may take Ibuprofen 600 mg every 8 hours with food for pain. You may also take Acetaminophen 650 mg every 4-6 hours for pain. Do not exceed 3000 mg of Tylenol a day as this can cause liver damage. Do not drink alcohol with either of these medications. Please follow up with your primary care doctor within the next 2-3 days for ER follow-up. (If you do not have a PCP you can call [phone]. ?to schedule an appointment with an [facility] Primary Care Provider) IF YOU DEVELOP ANY NEW OR WORSENING SYMPTOMS, RETURN TO THE ER! Please read the attached instructions, they highlight more specific treatments and interventions for you at home. Thank you for letting me participate in your care, Dejah Salinas PA-C Prescriptions: No Action losartan 100 mg tablet 100 mg PO DAILY metoprolol succinate [Toprol XL] 25 mg tablet extended release 24 hr 25 mg PO DAILY lovastatin 40 mg tablet 40 mg PO QPM Qty: 30 1RF hydroxyzine HCl 25 mg tablet 25 mg PO BID PRN (Reason: for anxiety) Qty: 60 0RF gabapentin 600 mg tablet 600 mg PO DAILY Qty: 540 0RF Rx Instructions: take 1 tab 6 times a day allopurinol 300 mg tablet 300 mg PO DAILY Qty: 90 0RF sertraline 25 mg tablet 25 mg PO DAILY Qty: 60 1RF Rx Instructions: increase to 2 tabs daily after 2 weeks if needed bupropion HCl 150 mg tablet sustained-release 12 hr 150 mg PO BID Qty: 180 3RF testosterone 20.25 mg/1.25 gram (1.62 %) gel in metered-dose pump See Rx Instructions .ROUTE .COMPLEX Qty: 75 5RF Rx Instructions: 1.65% 4 pumps topically daily total: 2 pumps applied to right and left upper arms methocarbamol 500 mg tablet 500 mg PO TID PRN (Reason: muscle spasm) Qty: 30 0RF Referrals: Chemo Cherry DO [Primary Care Provider] - Stand Alone Forms: Patient Portal/API/Survey ED Sign-out <Som Stewart MD - Last Filed: 12/02/24 07:13> Cosign ED Attending Cosignature Attestation: I was immediately available in the department for consultation. ?This documentation has been reviewed and I agree with assessment and plan. Supervised by Som Stewart MD
--- NOTE | 2024-12-01 15:33 | DI.RAD.S_ITS ---
PROCEDURE: XR KNEE RT 3V INDICATIONS: acute on chronic R knee pain TECHNIQUE: 3 views of the knee were acquired. COMPARISON: None. FINDINGS AND IMPRESSION: Mild degenerative changes. No displaced fracture. No dislocation. Small joint effusion. If there is high concern for further derangement, consider MRI evaluation. Dictated by: Pancho Armando M.D. on 12/01/2024 at 16:03 Approved by: Pancho Armando M.D. on 12/01/2024 at 16:03
[2024-12-01] MEDS: KETOROLAC 30 MG/ML VIAL IM (15:59)
[2024-12-01] MEDS: ACETAMINOPHEN 325 MG TABLET 650 MG PO (15:59)
[2024-12-01 17:10] VITALS: BP 125/69; PULSE 65; RESP 16; O2SAT 100
== END 2024-12-01 17:12 | disposition home or self-care (01) ==
PROVIDERS: Emergency Provider Physician Assistant; PCP Family Medicine
DX: M17.11 Unilateral primary osteoarthritis, right knee (principal); M25.461 Effusion, right knee
CPT/HCPCS: 73562; 96372; 99283; 99284; J1885

== ENCOUNTER → 2024-12-03 08:47 | Outpatient (CLI) | payer OTHER, SELFPAY ==
[2024-12-11 08:38] LABS: Percent Free Testosterone 3.02 % (1.50-4.20); Testosterone Free 9.66 ng/dL (5.00-21.00); Testosterone Total 319.9 ng/dL (264.0-916.0)
== END ==
PROVIDERS: PCP Family Medicine; Referring Provider Family Medicine; Visit Provider Family Medicine
DX: E34.9 Endocrine disorder, unspecified (principal)
CPT/HCPCS: 36415; 84402; 84403

== ENCOUNTER → 2025-05-08 07:38 | Outpatient (CLI) | payer OTHER, SELFPAY | PROVIDERS: PCP Family Medicine; Referring Provider Family Medicine; Visit Provider Family Medicine | DX: E34.9 Endocrine disorder, unspecified (principal) | CPT/HCPCS: 36415; 84402; 84403 ==